=== PATIENT | female | born 1965 | race Caucasian/White ===

== ENCOUNTER 2017-08-28 14:48 | Inpatient (IN) ==
[2017-08-28] MEDS ORDERED: ALBUTEROL/IPRATROPIUM 2.5mg-0.5mg/3ml NEB IH ONE (15:38)
[2017-08-28] MEDS ORDERED: METHYLPREDNISOLONE SOD SUCC 125mg/2ml INJECTION IVP ONE (15:38)
[2017-08-28] MEDS ORDERED: CEFTRIAXONE (ER USE ONLY) 1 GM in NS 100 ML IV ONE (15:38)
[2017-08-28] MEDS ORDERED: SALINE FLUSH 10ml SYRINGE IVF PRN (15:38)
[2017-08-28] MEDS ORDERED: KETOROLAC 30 MG/ML INJECTION IVP ONE (15:53)
--- OUTSIDE RECORDS SUMMARY | 2017-08-28 16:01 | External Medical Summary ---
:1965 Author Organization [employer] Care Team Providers Name Role Phone Anjali Berman Provider Role Unavailable Allergies No Known Allergies Problems Problem Type Condition Code Onset Dates Condition Status Problem Pain in left knee M25.562 Active Problem COPD (chronic obstructive pulmonary J44.9 Active disease) Problem Hyperlipidemia, unspecified E78.5 Active hyperlipidemia type Problem Tobacco use Z72.0 Active Medications Medication Code System Code Instructions Start Date End Date Status Dosage Gabapentin [facility] 33282-321 300 MG Orally January 21, as directed 4-13 Take one tablet 2016 at bedtime day one, day two take one tablet BID, then take one tablet three times a day Results No Known Results Summary Purpose [employer]ClinicalWorks Submission
--- OUTSIDE RECORDS SUMMARY | 2017-08-28 16:01 | External Medical Summary ---
:1965 Author Organization [facility] Address [address] [place] [address] Care Team Providers Name Role Phone Anjali Berman Unavailable Unavailable PROBLEMS Type Condition ICD9-CM Code [id number] Onset Condition SNOMED Code Code Dates Status Problem COPD exacerbation J44.1 Active 055111578 Problem Hyperlipidemia, E78.5 Active 29395044 unspecified hyperlipidemia type Problem Tobacco use Z72.0 Active 141807149 Problem Pain in left knee M25.562 Active 86891040 Problem COPD (chronic J44.9 Active 89832219 obstructive pulmonary disease) ALLERGIES Unknown Allergies SOCIAL HISTORY No smoking Hx information available PLAN OF CARE VITAL SIGNS MEDICATIONS Unknown Medications RESULTS No Results PROCEDURES No Known procedures IMMUNIZATIONS No Known Immunizations
--- OUTSIDE RECORDS SUMMARY | 2017-08-28 16:01 | External Medical Summary ---
:1965 Author Organization [facility] Address [address] [place] [address] Care Team Providers Name Role Phone Anjali Berman Unavailable Unavailable PROBLEMS Type Condition ICD9-CM [id number] Onset Condition SNOMED Code Code Code Dates Status Problem Pain in left knee M25.562 Active 60746370 Problem COPD exacerbation J44.1 Active 065684521 Problem Hyperlipidemia, E78.5 Active 29477745 unspecified hyperlipidemia type Problem Tobacco use Z72.0 Active 552827206 Problem COPD (chronic J44.9 Active 78171032 obstructive pulmonary disease) Problem Complete tear of M75.121 Active 751039677 right rotator cuff Problem Other chronic pain G89.29 Active 70178522 Problem Daytime somnolence R40.0 Active 928883982418 Problem 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 81285522 recurrent major depressive disorder, without psychotic features Problem Obstructive sleep G47.33 Active 62327358 apnea Problem Elevated E34.9 Active 630729649 parathyroid hormone ALLERGIES Substance Reaction Event Type Date Status penicillin Unknown Drug Allergy Jan, Active SOCIAL HISTORY No smoking Hx information available PLAN OF CARE Activity Details Follow Up prn, 3 Months Reason: VITAL SIGNS Weight 208.7 lbs 2017-02-10 Height 66.5 in 2017-02-10 Heart Rate 77 /min 2017-02-10 Oximetry 96 % 2017-02-10 BMI 33.18 kg/m2 2017-02-10 Blood pressure systolic 128 mm Hg 2017-02-10 Blood pressure diastolic 80 mm Hg 2017-02-10 MEDICATIONS Medication Instructions Dosage Frequency Start End Duration Status Date Date Gabapentin 400 MG Orally Take one as directed Jan, days Active tablet three 2016 times a day Hydrocodone-Acetam Orally every 6 1 tablet as 14 days Active inophen 10-325 MG hrs as needed needed Amitiza 8 MCG Orally Twice a 1 capsule Nov, 30 day(s) Active day as needed with food 2015 Albuterol Sulfate Inhalation 3 ml as Sep, 30 days Active 1.25 MG/3ML every 8 hrs as needed 2016 needed ProAir HFA 108 (90 Inhalation 2 puffs as Jan, days Active Base) MCG/ACT every 4 hrs as needed 2016 needed Nebulizer - as directed Use as directed Sep, - TAKE Active with nebulizer 2015 vials DIRECTED Cholecalciferol Orally Once a 1 capsule 24h Mar, DAYS Active 1000 UNIT day 2015 Atorvastatin Orally Once a as directed Nov, days Active Calcium 80 mg day QHS 2016 Metaxalone 800 MG Orally every 1 tablet 30 day(s) Active 6hrs Cymbalta 60 MG Orally daily 1 capsule 24h Nov, 30 day(s) Active 2017 RESULTS No Results PROCEDURES Procedure Date Ordered Related Diagnosis Body Site OFFICE VISITEST PT February 10, 2017 IMMUNIZATIONS No Known Immunizations
--- OUTSIDE RECORDS SUMMARY | 2017-08-28 16:01 | External Medical Summary ---
:1965 Author Organization [facility] Address [address] [phone] Care Team Providers Name Role Phone Rakesh Norman Unavailable Unavailable PROBLEMS Type Condition ICD9-CM [id number] Onset Condition SNOMED Code Code Code Dates Status Problem Hyperparathyroidism E21.3 Active 35178749 Problem Vitamin D deficiency E55.9 Active 18282718 Assessment Hot flashes R23.2 Jan, Active 377481795 2017 Assessment Other fatigue R53.83 Jan, Active 01214282 2017 Assessment Hyperparathyroidism E21.3 Jan, Active 30383288 2017 Assessment Elevated TSH R94.6 Jan, Active 665484263 2017 ALLERGIES Substance Reaction Event Type Date Status Penicillin G Benzathine Unknown Drug Allergy Jan, Active SOCIAL HISTORY No smoking Hx information available PLAN OF CARE Activity Details Pending Test RENAL FUNCTION PANEL 13316 Pending Test THYROGLOBULIN ANTIBODIES 70602 Pending Test THYROID PEROXIDASE ANTIBODIES (TPO) 11778 Pending Test TSH W/REFLEX TO FT4 44161 Pending Test VITAMIN D, 25-OH, [place] [address] Pending Test VITAMIN D, 1,25 DIHYDROXY LC/MS/MS 88958 4 Months, prn,Reason: VITAL SIGNS Height 66 in 2017-02-03 Weight 207 lbs 2017-02-03 Heart Rate 78 /min 2017-02-03 Respiratory Rate 18 /min 2017-02-03 BMI 33.41 kg/m2 2017-02-03 Blood pressure systolic 122 mm Hg 2017-02-03 Blood pressure diastolic 84 mm Hg 2017-02-03 MEDICATIONS Medication Instructions Dosage Frequency Start End Duration Status Date Date Atorvastatin Orally Once a 1 tablet 24h Active Calcium 80 MG day Hydrocodone-Acet Orally every 6 1 tablet as 6h Active aminophen 10-325 hrs needed MG Cymbalta 60 MG Orally Once a 1 capsule 24h Active day Albuterol Inhalation Three 3 ml Active Sulfate (2.5 times a day as MG/3ML) 0.083% needed Amitiza 8 MCG Orally Twice a 1 capsule 12h Active day with food ProAir HFA 108 Inhalation every 2 puffs as 4h Active (90 Base) 4 hrs needed MCG/ACT Gabapentin 400 Orally Three 1 capsule 8h Active MG times a day Metaxalone 800 Orally Three 1 tablet 8h Active MG times a day RESULTS No Results PROCEDURES Procedure Date Ordered Related Diagnosis Body Site ASSAY OF PARATHORMONE February 03, 2017 RENAL FUNCTION PANEL February 03, 2017 Office Visit, New Pt., Level 3 February 03, 2017 ASSAY OF DIHYDROXYVITAMIN D February 03, 2017 MICROSOMAL ANTIBODY February 03, 2017 ASSAY THYROID STIM HORMONE February 03, 2017 ASSAY OF VITAMIN D February 03, 2017 THYROGLOBULIN ANTIBODY February 03, 2017 IMMUNIZATIONS No Known Immunizations
--- OUTSIDE RECORDS SUMMARY | 2017-08-28 16:01 | External Medical Summary ---
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 22368655 Problem Hyperparathyroidism E21.3 Active 17757777 Problem Vitamin D deficiency E55.9 Active 31435510 ALLERGIES Substance Reaction Event Type Date Status Penicillin G Benzathine Unknown Drug Allergy May, Active SOCIAL HISTORY No smoking Hx information available PLAN OF CARE Activity Details Follow Up 6 Months, prn Reason: Pending Test RENAL FUNCTION PANEL 95088 Pending Test T4, FREE 77522 Pending Test TSH 28658 Pending Test T3, FREE Pending Test VITAMIN D, 25-[address], [place] [address] Pending Test VITAMIN D, 1,25 DIHYDROXY LC/MS/MS 80092 Pending Test DEXA Hip and Spine Pending Test DEXA Forearm VITAL SIGNS Height 66 in 2017-06-09 Weight 207 lbs 2017-06-09 Heart Rate 78 /min 2017-06-09 Respiratory Rate 18 /min 2017-06-09 BMI 33.41 kg/m2 2017-06-09 Blood pressure systolic 122 mm Hg 2017-06-09 Blood pressure diastolic 80 mm Hg 2017-06-09 MEDICATIONS Medication Instructions Dosage Frequency Start End Date Duration Status Date Hydrocodone-Isaac Orally every 6 1 tablet as 6h Active taminophen hrs needed 10-325 MG Cymbalta 60 MG Orally Once a [...] Related Diagnosis Body Site ASSAY OF PARATHORMONE Jun 09, 2017 RENAL FUNCTION PANEL Jun 09, 2017 CENTRAL DEXA ORDERED Jun 09, 2017 ASSAY THYROID STIM HORMONE Jun 09, 2017 Office Visit, Est Pt., Level 4 Jun 09, 2017 ASSAY OF VITAMIN D Jun 09, 2017 ASSAY OF DIHYDROXYVITAMIN D Jun 09, 2017 FREE ASSAY (FT-3) Jun 09, 2017 ASSAY OF FREE THYROXINE Jun 09, 2017 IMMUNIZATIONS No Known Immunizations
--- OUTSIDE RECORDS SUMMARY | 2017-08-28 16:01 | External Medical Summary ---
:1965 Author Organization [employer] Care Team Providers Name Role Phone Anjali Berman Provider Role Unavailable Allergies No Known Allergies Problems Problem Type Condition Code Onset Dates Condition Status Problem Pain in left knee M25.562 Active Problem COPD (chronic obstructive pulmonary J44.9 Active disease) Problem Hyperlipidemia, unspecified E78.5 Active hyperlipidemia type Problem Tobacco use Z72.0 Active Medications No Known Medications Results No Known Results Summary Purpose eClinicalWorks Submission
--- OUTSIDE RECORDS SUMMARY | 2017-08-28 16:02 | External Medical Summary ---
:1965 Author Organization [facility] Address [address] [place] [address] Care Team Providers Name Role Phone Anjali Berman Unavailable Unavailable PROBLEMS Type Condition ICD9-CM [id number] Onset Condition SNOMED Code Code Code Dates Status Problem Pain in left knee M25.562 Active 63452776 Problem COPD exacerbation J44.1 Active 067139782 Problem Hyperlipidemia, E78.5 Active 83793167 unspecified hyperlipidemia type Problem Tobacco use Z72.0 Active 367226637 Problem COPD (chronic J44.9 Active 72298898 obstructive pulmonary disease) Problem Complete tear of M75.121 Active 896440586 right rotator cuff Problem Other chronic pain G89.29 Active 11877837 Problem Daytime somnolence R40.0 Active 352239659804 Problem 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
--- OUTSIDE RECORDS SUMMARY | 2017-08-28 16:02 | External Medical Summary ---
:1965 Author Organization [employer] Care Team Providers Name Role Phone Anjali Berman Provider Role Unavailable Allergies No Known Allergies Problems Problem Type Condition Code Onset Dates Condition Status Problem Pain in left knee M25.562 Active Problem COPD (chronic obstructive pulmonary J44.9 Active disease) Problem Hyperlipidemia, unspecified E78.5 Active hyperlipidemia type Problem Tobacco use Z72.0 Active Assessment Breast lump N63 Active Medications No Known Medications Procedures Procedure Coding System Code Date BREAST CPT-4 71356 February 07, 2016 Results No Known Results Summary Purpose [employer]ClinicalWorks Submission
--- OUTSIDE RECORDS SUMMARY | 2017-08-28 16:04 | External Medical Summary ---
:1965 Author Organization [facility] Address [address] [place] [address] Care Team Providers Name Role Phone Anjali Berman Unavailable Unavailable PROBLEMS Type Condition ICD9-CM [id number] Onset Condition SNOMED Code Code Code Dates Status Problem Pain in left knee M25.562 Active 32493546 Problem COPD exacerbation J44.1 Active 497162924 Problem Hyperlipidemia, E78.5 Active 51834550 unspecified hyperlipidemia type Problem Tobacco use Z72.0 Active 131817264 Problem COPD (chronic J44.9 Active 46888845 obstructive pulmonary disease) Problem Complete tear of M75.121 Active 272536089 right rotator cuff Problem Other chronic pain G89.29 Active 94896291 Problem Daytime somnolence R40.0 Active 853875310705 Problem 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 63080066 recurrent major depressive disorder, without psychotic features Problem Obstructive sleep G47.33 Active 78418487 apnea Problem Elevated E34.9 Active 303578794 parathyroid hormone ALLERGIES Substance Reaction Event Type Date Status penicillin Unknown Drug Allergy February, Active SOCIAL HISTORY No smoking Hx information available PLAN OF CARE Activity Details Follow Up prn, 3 Months Reason: VITAL SIGNS Weight 207.3 lbs 2017-02-24 Height 66.5 in 2017-02-24 Heart Rate 81 /min 2017-02-24 Oximetry 97 % 2017-02-24 BMI 32.95 kg/m2 2017-02-24 Blood pressure systolic 130 mm Hg 2017-02-24 Blood pressure diastolic 80 mm Hg 2017-02-24 MEDICATIONS Medication Instructions Dosage Frequency Start End Duration Status Date Date Atorvastatin Orally Once a as directed Nov, days Active Calcium 80 mg day QHS 2016 Nebulizer - as directed Use as directed Sep, - TAKE Active with nebulizer 2015 vials DIRECTED Cholecalciferol Orally Once a 1 capsule 24h Mar, Active 1000 UNIT day 2015 Amitiza 8 MCG Orally Twice a 1 capsule Nov, 30 day(s) Active day as needed with food 2015 ProAir HFA 108 (90 Inhalation 2 puffs as Jan, days Active Base) MCG/ACT every 4 hrs as needed 2015 needed Cymbalta 60 MG Orally daily 1 capsule 24h Nov, 30 day(s) Active 2017 Metaxalone 800 MG Orally every 1 tablet 30 day(s) Active 6hrs Albuterol Sulfate Inhalation 3 ml as Sep, Active 1.25 MG/3ML every 8 hrs as needed 2015 needed Hydrocodone-Acetam Orally every 6 1 tablet as 14 days Active inophen 10-325 MG hrs as needed needed Gabapentin 400 MG Orally Take one as directed Jan, days Active tablet three 2016 times a day RESULTS Name Result Date Reference Range CBC 2017-02-24 WBC 6.6 4.0-10.0 NE% 47.5 42.2-75.2 NE# 3.1 1.4-6.5 LY% 41.4 20.5-51.1 LY# 2.7 1.2-3.4 MO% 7.6 1.7-9.3 MO# 0.5 0.1-0.6 EO% 3.0 0.0-3.0 EO# 0.2 0.0-0.2 BA% 0.3 0.0-1.0 BA# 0.0 0.0-0.1 RBC 4.69 3.90-5.20 HGB 15.2 11.6-16.0 HCT 46.5 36.0-46.0 MCV 99.1 81.0-96.0 MCH 32.4 27.0-33.0 MCHC 32.7 32.0-35.0 RDW 13.6 11.5-15.5 PLT 232 130-400 MPV 10.9 8.9-12.7 COMPREHENSIVE CHEM PROFILE 2017-02-24 GLUCOSE 78 60-99 BUN 10 6-20 CREATININE 0.5 0.4-1.1 eGFR If Am 159 >60 eGFR If Non Am 131 >60 TOTAL BILI 0.31 0.00-1.00 SODIUM 142 133-145 POTASSIUM 4.6 3.3-5.1 CHLORIDE 102 96-108 CO2 29 23-31 CALCIUM 10.8 8.7-10.3 AST/SGOT 14 5-40 ALT/SGPT 18 5-40 ALK PHOS 85 34-114 TOTAL PROTEIN 6.9 5.9-8.4 ALBUMIN 4.0 3.2-5.2 GLOBULIN 2.9 2.0-4.4 PROCEDURES Procedure Date Ordered Related Diagnosis Body Site CBC February 24, 2017 COMP PROFILE February 24, 2017 OFFICE VISITEST PT February 24, 2017 EKG WITH INTERPRETAT February 24, 2017 IMMUNIZATIONS No Known Immunizations
--- OUTSIDE RECORDS SUMMARY | 2017-08-28 16:04 | External Medical Summary ---
:1965 Author Organization [employer]ClinicalWorks Care Team Providers Name Role Phone Anjali Berman Provider Role Unavailable Allergies, Adverse Reactions, Alerts Substance Reaction Event Type penicillin Info Not Available Drug Allergy Problems Problem Type Condition Code Onset Dates Condition Status Problem Pain in left knee M25.562 Active Problem COPD (chronic obstructive pulmonary J44.9 Active disease) Problem Hyperlipidemia, unspecified E78.5 Active hyperlipidemia type Assessment Low vitamin D level E55.9 Active Assessment Elevated parathyroid hormone E34.9 Active Problem Tobacco use Z72.0 Active Assessment Acute pansinusitis, recurrence not J01.40 Active specified Medications Medication Code Code Instructions Start End Status Dosage System Date Date ProAir HFA [facility] [id number] 108 (90 Base) January 2 puffs as MCG/ACT , needed Inhalation 2015 every 4 hrs as needed Azithromycin [facility] [address]-32 250 MG Orally Aug 06, 2 tablets Once a day 2015 on the first day, then 1 tablet daily for 4 days Cholecalciferol [facility] [address]-46 1000 UNIT March 1 capsule Orally Once a , day 2015 Atorvastatin [facility] [address]-81 80 mg Orally Dec 11, as Calcium Once a day QHS 2016 directed Metaxalone [facility] [address]-86 800 MG Orally 1 tablet every 6hrs Gabapentin [facility] [address]-39 400 MG Orally January as Take one , directed tablet three 2016 times a day Amitiza [facility] [address]-45 8 MCG Orally Dec 10, 1 capsule Twice a day as 2015 with food needed Hydrocodone-Acetam [facility] [address]-38 10-325 MG 1 tablet inophen Orally every 6 as needed hrs as needed Procedures Procedure Coding System Code Date PARATHYROID HORMONE CPT-4 94226 Aug 06, 2016 OFFICE VISITEST PT CPT-4 61611 Aug 06, 2016 Vitamin D 25OH CPT-4 64131 Aug 06, 2016 Vital Signs Date/Time: Aug 06, 2016 Blood Pressure Systolic 126 mm Hg Height 66.5 in Weight 203.4 lbs Oximetry 96 % Cardiac Monitoring Heart Rate 77 /min Temperature 98.7 F Blood Pressure Diastolic 84 mm Hg BMI 32.33 Index Results Name Result Date Reference Range Unit Abnormality Flag Vitamin D 25 - Hydroxy (PTH) Parathyroid Hormone ----PTH 122.3 [id number] 15.0-65.0 pg/ml H Summary Purpose eClinicalWorks Submission
--- OUTSIDE RECORDS SUMMARY | 2017-08-28 16:04 | External Medical Summary ---
:1965 Author Organization [facility] Address [address] [place] [address] Care Team Providers Name Role Phone Anjali Berman Unavailable Unavailable PROBLEMS Type Condition ICD9-CM [id number] Onset Condition SNOMED Code Code Code Dates Status Problem Pain in left knee M25.562 Active 35729494 Problem COPD exacerbation J44.1 Active 361261425 Problem Hyperlipidemia, E78.5 Active 51159038 unspecified hyperlipidemia type Problem Tobacco use Z72.0 Active 913565834 Problem COPD (chronic J44.9 Active 61754817 obstructive pulmonary disease) Problem Complete tear of M75.121 Active 286987192 right rotator cuff Problem Other chronic pain G89.29 Active 10914591 Problem Daytime somnolence R40.0 Active 222574101763 Problem 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
--- OUTSIDE RECORDS SUMMARY | 2017-08-28 16:04 | External Medical Summary ---
:1965 Author Organization [employer] Care Team Providers Name Role Phone Anjali Berman Provider Role Unavailable Allergies No Known Allergies Problems Problem Type Condition Code Onset Dates Condition Status Problem Pain in left knee M25.562 Active Problem COPD (chronic obstructive pulmonary J44.9 Active disease) Problem Hyperlipidemia, unspecified E78.5 Active hyperlipidemia type Problem Tobacco use Z72.0 Active Assessment COPD (chronic obstructive pulmonary J44.9 Active disease) Medications No Known Medications Procedures Procedure Coding System Code Date PULMONARY FUNCTION S CPT-4 80635 January 29, 2016 Results No Known Results Summary Purpose [employer] Submission
--- OUTSIDE RECORDS SUMMARY | 2017-08-28 16:04 | External Medical Summary ---
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 97830120 Problem Hyperparathyroidism E21.3 Active 40462552 Problem Vitamin D deficiency E55.9 Active 11649780 ALLERGIES Unknown Allergies SOCIAL HISTORY No smoking Hx information available PLAN OF CARE Activity Details Follow Up prn Reason: Pending Test CALCIUM, 24 HOUR URINE (W/ CREATININE) 53164, 31371 VITAL SIGNS MEDICATIONS Medication Instructions Dosage Frequency Start End Date Duration Status Date Amitiza 8 MCG Orally Twice a 1 capsule 12h Active day with food ProAir HFA 108 Inhalation every 2 puffs as 4h Active (90 Base) 4 hrs needed MCG/ACT Gabapentin 400 Orally Three 1 capsule 8h Active MG times a day Hydrocodone-Isaac Orally every 6 1 tablet as 6h Active taminophen hrs needed 10-325 MG Cymbalta 60 MG Orally Once a 1 capsule 24h Active day Albuterol Inhalation Three 3 ml Active Sulfate (2.5 times a day as MG/3ML) 0.083% needed Metaxalone 800 Orally Three 1 tablet 8h Active MG times a day RESULTS No Results PROCEDURES Procedure Date Ordered Related Diagnosis Body Site US EXAM OF HEAD AND NECK Jun 23, 2017 ASSAY OF URINE CREATININE Jun 23, 2017 ASSAY OF CALCIUM IN URINE Jun 23, 2017 IMMUNIZATIONS No Known Immunizations
--- OUTSIDE RECORDS SUMMARY | 2017-08-28 16:04 | External Medical Summary ---
[...] Medications Medication Code System Code Instructions Start End Date Status Dosage Date Hydrocodone-Isaac [facility] [address]331 10-325 MG Orally 1 tablet taminophen 6-30 every 6 hrs as as needed needed Results No Known Results Summary Purpose [employer] Submission
--- OUTSIDE RECORDS SUMMARY | 2017-08-28 16:04 | External Medical Summary ---
:1965 Author Organization [employer] Care Team Providers Name Role Phone Anjali Berman Provider Role Unavailable Allergies No Known Allergies Problems Problem Type Condition Code Onset Dates Condition Status Problem Pain in left knee M25.562 Active Problem COPD (chronic obstructive pulmonary J44.9 Active disease) Problem Hyperlipidemia, unspecified E78.5 Active hyperlipidemia type Problem Tobacco use Z72.0 Active Assessment Abnormal finding on mammography R92.8 Active Medications No Known Medications Procedures Procedure Coding System Code Date COMPUTER AIDED DX CPT-4 96960 February 11, 2016 DX MAMMO, UNILATERAL CPT-4 29457 February 11, 2016 Results Name Result Date Reference Range Unit Abnormality Flag Mammogram, Dx Unilateral Summary Purpose [employer]ClinicalWorks Submission
--- OUTSIDE RECORDS SUMMARY | 2017-08-28 16:04 | External Medical Summary ---
:1965 Author Organization [facility] Address [address] [place] [address] Care Team Providers Name Role Phone Anjali Berman Unavailable Unavailable PROBLEMS Type Condition ICD9-CM [id number] Onset Condition SNOMED Code Code Code Dates Status Problem Pain in left knee M25.562 Active 20574159 Problem COPD exacerbation J44.1 Active 861444214 Problem Hyperlipidemia, E78.5 Active 38732074 unspecified hyperlipidemia type Problem Tobacco use Z72.0 Active 821583733 Problem COPD (chronic J44.9 Active 60743673 obstructive pulmonary disease) Problem Complete tear of M75.121 Active 656855440 right rotator cuff Problem Other chronic pain G89.29 Active 14535843 Problem Daytime somnolence R40.0 Active 901862911976 Problem 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
--- OUTSIDE RECORDS SUMMARY | 2017-08-28 16:04 | External Medical Summary ---
:1965 Author Organization [employer] Care Team Providers Name Role Phone Anjali Berman Provider Role Unavailable Allergies, Adverse Reactions, Alerts Substance Reaction Event Type penicillin Info Not Available Drug Allergy Problems Problem Type Condition Code Onset Dates Condition Status Assessment Tobacco use Z72.0 Active Assessment Hyperlipidemia, unspecified E78.5 Active hyperlipidemia type Problem Pain in left knee M25.562 Active Problem COPD (chronic obstructive pulmonary J44.9 Active disease) Problem Hyperlipidemia, unspecified E78.5 Active hyperlipidemia type Assessment Breast nodule N63 Active Assessment Pain in left knee M25.562 Active Problem Tobacco use Z72.0 Active Assessment Well woman exam Z01.419 Active Medications Medication Code Code Instructions Start End Date Status Dosage System Date Hydrocodone-Acet [facility] 89565-95 10-325 MG Orally 1 tablet as aminophen 16-30 every 6 [place] [address]-66 300 MG Orally January 21, as directed 04-13 Take one tablet 2015 at bedtime day one, day two take one tablet BID, for week three times a day Amitiza [facility] 21122-41 8 MCG Orally b , 1 capsule 22-30 Twice a day 2015 [place] [address]-08 80 mg Orally b 24, as directed Calcium 41-45 Once a day QHS 2016 ProAir HFA [facility] 47353-26 108 (90 Base) January 21, 2 puffs as 51-85 MCG/ACT 2016 needed Inhalation every 4 hrs as needed Brisdelle [facility] 76159-14 7.5 MG Orally b 24, 1 capsule 75-03 Once a day 2016 at bedtime Procedures Procedure Coding System Code Date PREV MED SEREST 40 CPT-4 04025 January 22, 2016 Vital Signs Date/Time: January 22, 2016 Blood Pressure Systolic 128 mm Hg Height 66.5 in Weight 196.9 lbs BMI 31.30 Index Oximetry 98 % Cardiac Monitoring Heart Rate 95 /min Blood Pressure Diastolic 80 mm Hg Results No Known Results Summary Purpose [employer]ClinicalWorks Submission
--- OUTSIDE RECORDS SUMMARY | 2017-08-28 16:04 | External Medical Summary ---
:1965 Author Organization [employer] Care Team Providers Name Role Phone Anjali Berman Provider Role Unavailable Allergies No Known Allergies Problems Problem Type Condition Code Onset Dates Condition Status Problem Hyperlipidemia, unspecified E78.5 Active hyperlipidemia type Problem Pain in left knee M25.562 Active Problem COPD exacerbation J44.1 Active Problem COPD (chronic obstructive pulmonary J44.9 Active disease) Problem Tobacco use Z72.0 Active Medications No Known Medications Results No Known Results Summary Purpose [employer]Works Submission
--- OUTSIDE RECORDS SUMMARY | 2017-08-28 16:04 | External Medical Summary ---
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 07706858 recurrent major depressive disorder, without psychotic features Problem Pain in left knee M25.562 Active 94251749 Problem COPD (chronic J44.9 Active 75262733 obstructive pulmonary disease) Problem COPD exacerbation J44.1 Active 416288557 Problem Hyperlipidemia, E78.5 Active 98370068 unspecified hyperlipidemia type ALLERGIES Substance Reaction Event Type Date Status penicillin Unknown Drug Allergy Nov, Active SOCIAL HISTORY No smoking Hx information available PLAN OF CARE VITAL SIGNS Weight 210.4 lbs 2016-12-14 Height 66.5 in 2016-12-14 Temperature 97.9 degrees Fahrenheit 2016-12-14 Heart Rate 87 /min 2016-12-14 Oximetry 95 % 2016-12-14 BMI 33.45 kg/m2 2016-12-14 Blood pressure systolic 126 mm Hg 2016-12-14 Blood pressure diastolic 84 mm Hg 2016-12-14 MEDICATIONS Medication Instructions Dosage Frequency Start End Duration Status Date Date Medrol (Jaxson) 4 mg Orally daily as directed 24h Nov, - TAKE Active 2016 DIRECTED Azithromycin 250 Orally Once a 2 tablets 24h Nov, 5 day(s) Active MG day on the 2016 first day, then 1 tablet daily for 4 days Albuterol Sulfate Inhalation 3 ml as Sep, 30 days Active 1.25 MG/3ML every 8 hrs as needed 2015 needed Metaxalone 800 MG Orally every 1 tablet 30 day(s) Active 6hrs Cholecalciferol Orally Once a 1 capsule 24h Mar, DAYS Active 1000 UNIT day 2015 Hydrocodone-Acetam Orally every 6 1 tablet as 14 days Active inophen 10-325 MG hrs as needed needed Cymbalta 30 MG Orally daily 1 capsule 24h Nov, 30 day(s) Active 2017 Nebulizer - as directed Use as directed Sep, - TAKE Active with nebulizer 2015 vials DIRECTED Amitiza 8 MCG Orally Twice a 1 capsule Nov, day(s) Active day as needed with food 2015 Gabapentin 400 MG Orally Take one as directed Jan, days Active tablet three 2016 times a day ProAir HFA 108 (90 Inhalation 2 puffs as Jan, days Active Base) MCG/ACT every 4 hrs as needed 2015 needed Atorvastatin Orally Once a as directed Nov, days Active Calcium 80 mg day QHS 2015 RESULTS No Results PROCEDURES Procedure Date Ordered Related Diagnosis Body Site OFFICE VISITEST PT Dec 14, 2016 IMMUNIZATIONS No Known Immunizations
--- OUTSIDE RECORDS SUMMARY | 2017-08-28 16:04 | External Medical Summary ---
:1965 Author Organization [employer] Care Team Providers Name Role Phone Anjali Berman Provider Role Unavailable Allergies No Known Allergies Problems Problem Type Condition Code Onset Dates Condition Status Problem Pain in left knee M25.562 Active Problem COPD (chronic obstructive pulmonary J44.9 Active disease) Problem Hyperlipidemia, unspecified E78.5 Active hyperlipidemia type Problem Tobacco use Z72.0 Active Assessment Encounter for other preprocedural Z01.818 Active examination Medications No Known Medications Procedures Procedure Coding System Code Date CHEST XRAY 2 VIEW CPT-4 37868 January 29, 2016 Results No Known Results Summary Purpose [employer] Submission
--- OUTSIDE RECORDS SUMMARY | 2017-08-28 16:04 | External Medical Summary ---
:1965 Author Organization [facility] Address [address] [place] [address] Care Team Providers Name Role Phone Anjali Berman Unavailable Unavailable PROBLEMS Type Condition ICD9-CM [id number] Onset Condition SNOMED Code Code Code Dates Status Problem Pain in left knee M25.562 Active 55901905 Problem COPD exacerbation J44.1 Active 257148482 Problem Hyperlipidemia, E78.5 Active 52195954 unspecified hyperlipidemia type Problem Tobacco use Z72.0 Active 466372304 Problem COPD (chronic J44.9 Active 39283808 obstructive pulmonary disease) Problem Complete tear of M75.121 Active 250041718 right rotator cuff Problem Other chronic pain G89.29 Active 24017047 Problem Daytime somnolence R40.0 Active 772274217954 Problem 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 82692861 recurrent major depressive disorder, without psychotic features Problem Obstructive sleep G47.33 Active 36148562 apnea Problem Elevated E34.9 Active 177318935 parathyroid hormone ALLERGIES Unknown Allergies SOCIAL HISTORY No smoking Hx information available PLAN OF CARE VITAL SIGNS MEDICATIONS Unknown Medications RESULTS No Results PROCEDURES No Known procedures IMMUNIZATIONS No Known Immunizations
--- OUTSIDE RECORDS SUMMARY | 2017-08-28 16:06 | External Medical Summary ---
[...] Tobacco use Z72.0 Active Assessment Breast lump or mass N63 Active Medications No Known Medications Procedures Procedure Coding System Code Date COMPUTER AIDED DX CPT-4 71634 February 07, 2016 Dx mammo bilateral CPT-4 57172 February 07, 2016 Results No Known Results Summary Purpose [employer]ClinicalWorks Submission
--- OUTSIDE RECORDS SUMMARY | 2017-08-28 16:06 | External Medical Summary ---
:1965 Author Organization [employer]Works Care Team Providers Name Role Phone Anjali Berman Provider Role Unavailable Allergies No Known Allergies Problems Problem Type Condition Code Onset Dates Condition Status Assessment Elevated MCV R71.8 Active Assessment Subclinical hypothyroidism E03.9 Active Assessment Hypercalcemia E83.52 Active Problem Pain in left knee M25.562 Active Problem COPD (chronic obstructive pulmonary J44.9 Active disease) Problem Hyperlipidemia, unspecified E78.5 Active hyperlipidemia type Assessment Breast nodule N63 Active Assessment Hyperlipidemia E78.5 Active Problem Tobacco use Z72.0 Active Assessment Pre-procedural laboratory Z01.812 Active examination Medications No Known Medications Procedures Procedure Coding System Code Date COMP PROFILE CPT-4 96304 January 29, 2016 PROTIME CPT-4 58658 January 29, 2016 CBC CPT-4 18564 January 29, 2016 URINE CULTURE CPT-4 94324 January 29, 2016 HgB A1C CPT-4 34488 January 29, 2016 URINALYSIS CPT-4 10399 January 29, 2016 T4 CPT-4 57786 January 29, 2016 TSH CPT-4 04626 January 29, 2016 Results Name Result Date Reference Range Unit Abnormality Flag COMPREHENSIVE CHEM PROFILE ----CALCIUM 10.4 30665549 8.7-10.3 MG/DL H ----CO2 30 86850143 23-31 MMOL/L ----CREATININE 0.5 69087132 0.4-1.1 MG/DL ----eGFR If Am 159 60762833 >60 ml/min/1.73m^ 2 ----GLOBULIN 2.7 55599807 2.0-4.4 G/DL ----eGFR If Non 132 31924806 >60 ml/min/1.73m^ Am 2 ----ALBUMIN 4.1 03318241 3.2-5.2 G/DL ----TOTAL BILI 0.33 42355162 0.00-1.00 MG/DL ----TOTAL PROTEIN 6.8 36096996 5.9-8.4 G/DL ----SODIUM 143 61417096 133-145 MMOL/L ----ALK PHOS 94 59453873 34-114 U/L ----POTASSIUM 3.9 24454593 3.3-5.1 MMOL/L ----GLUCOSE 120 72208065 60-99 MG/DL H ----CHLORIDE 103 23970502 96-108 MMOL/L ----ALT/SGPT 37 16587611 5-40 U/L ----BUN 7 46272340 6-20 MG/DL ----AST/SGOT 26 09074862 5-40 U/L HbA1C ----%A1C 5.8 83742694 4.0-6.0 % CBC ----MCV 100.8 78133068 81.0-96.0 FL H ----HCT 47.7 33423444 36.0-46.0 % H ----MCHC 32.3 80054925 32.0-35.0 G/DL ----MCH 32.6 21281662 27.0-33.0 PG ----EO# 0.3 51423877 0.0-0.2 X10^3/UL H ----PLT 224 94988759 130-400 X10^3 ----EO% 4.0 47459558 0.0-3.0 % H ----RDW 13.2 90352219 11.5-15.5 % ----MO# 0.6 78895956 0.1-0.6 X10^3/UL H ----MO% 7.4 26534291 1.7-9.3 % ----LY# 3.0 03814356 1.2-3.4 X10^3/UL ----BA# 0.0 54551678 0.0-0.1 X10^3/UL ----BA% 0.3 02973526 0.0-1.0 % ----HGB 15.4 91976509 11.6-16.0 G/DL ----RBC 4.73 79200069 3.90-5.20 X10^6 ----MPV 11.6 03024034 8.9-12.7 FL ----WBC 7.7 59041631 4.0-10.0 X10^3/UL ----NE% 49.4 83664499 42.2-75.2 % ----NE# 3.8 57861032 1.4-6.5 X10^3/UL ----LY% 38.9 29735150 20.5-51.1 % PROTIME ----INR 0.8 44236552 2.0-3.5 L ----PT 10.0 24374853 11.6-13.2 SEC L Urinalysis ----PROTEIN NEG 25445206 NEGATIVE ----pH 5 21716412 5-8 ----NITRITES NEG 30377578 NEGATIVE ----LEUKOCYTES TR 90196736 NEGATIVE ----UROBILINOGEN NORM 38180434 0 - 1.0 MG/DL ----KETONES NEG 57599237 NEGATIVE ----GLUCOSE NORM 75233582 NEG MG/DL ----SPEC GRAVITY 1.030 59766236 1.016-1.022 ----CLARITY CLEAR 01429333 CLEAR ----COLOR D.YEL 80305690 YELLOW-STRAW ----BILIRUBIN NEG 60500280 NEGATIVE ----BLOOD NEG 46008898 NEGATIVE Urine Culture #[id number] T4 ----T4 6.5 03607121 4.6-12.0 ?g/dL TSH ----TSH 4.57 10982292 0.40-5.00 ?IU/ML Summary Purpose eClinicalWorks Submission
--- OUTSIDE RECORDS SUMMARY | 2017-08-28 16:06 | External Medical Summary ---
[...] System Code Date COMPUTER AIDED DX CPT-4 82203 Aug 06, 2016 Dx mammo bilateral CPT-4 85722 Aug 06, 2016 Results Name Result Date Reference Range Unit Abnormality Flag Mammogram, Dx Bilateral Summary Purpose [employer]ClinicalWorks Submission
--- OUTSIDE RECORDS SUMMARY | 2017-08-28 16:06 | External Medical Summary ---
:[address] [facility] Address [address] [place] [address] Care Team Providers Name Role Phone Anjali Berman Unavailable Unavailable PROBLEMS Type Condition ICD9-CM [id number] Onset Condition SNOMED Code Code Code Dates Status Problem Pain in left knee M25.562 Active 07372517 Problem COPD exacerbation J44.1 Active 049864507 Problem Hyperlipidemia, E78.5 Active 04008428 unspecified hyperlipidemia type Problem Tobacco use Z72.0 Active 230636326 Problem COPD (chronic J44.9 Active 60261176 obstructive pulmonary disease) Problem Complete tear of M75.121 Active 024612641 right rotator cuff Problem Other chronic pain G89.29 Active 32850959 Problem Daytime somnolence R40.0 Active 792563478773 Problem 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
--- OUTSIDE RECORDS SUMMARY | 2017-08-28 16:06 | External Medical Summary ---
:1965 Author Organization [facility] Address [address] [place] [address] Care Team Providers Name Role Phone Anjali Berman Unavailable Unavailable PROBLEMS Type Condition ICD9-CM [id number] Onset Condition SNOMED Code Code Code Dates Status Problem Pain in left knee M25.562 Active 16849647 Problem COPD exacerbation J44.1 Active 095156244 Problem Hyperlipidemia, E78.5 Active 98322789 unspecified hyperlipidemia type Problem Tobacco use Z72.0 Active 288920922 Problem COPD (chronic J44.9 Active 21470321 obstructive pulmonary disease) Problem Complete tear of M75.121 Active 399258872 right rotator cuff Problem Other chronic pain G89.29 Active 57626324 Problem Daytime somnolence R40.0 Active 553784816470 Problem 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 51673054 recurrent major depressive disorder, without psychotic features Problem Obstructive sleep G47.33 Active 25498840 apnea Problem Elevated E34.9 Active 300993181 parathyroid hormone ALLERGIES Substance Reaction Event Type [...]
--- OUTSIDE RECORDS SUMMARY | 2017-08-28 16:06 | External Medical Summary ---
:1965 Author Organization [employer]Works Care Team Providers Name Role Phone Anjali Berman Provider Role Unavailable Allergies No Known Allergies Problems Problem Type Condition Code Onset Dates Condition Status Problem Pain in left knee M25.562 Active Problem COPD (chronic obstructive pulmonary J44.9 Active disease) Problem Hyperlipidemia, unspecified E78.5 Active hyperlipidemia type Assessment Hypercalcemia E83.52 Active Assessment Back pain M54.9 Active Problem Tobacco use Z72.0 Active Assessment Elevated MCV R71.8 Active Medications No Known Medications Procedures Procedure Coding System Code Date IMMUNOFIXATION ELECT CPT-4 00886 April 24, 2016 PROTEIN ELECTROPHOR CPT-4 85499 April 24, 2016 T PROTEIN CPT-4 37853 April 24, 2016 Immunoglobulins (IgA,D,G,or M) CPT-4 52870 April 24, 2016 Results Name Result Date Reference Range Unit Abnormality Flag RENATO/PE Immunofixation/Serum Protein Electrophoresis, Myeloma Proteins #[id number] Protein Electrophoresis, Random Urine #[id number] Summary Purpose eClinicalWorks Submission
--- OUTSIDE RECORDS SUMMARY | 2017-08-28 16:06 | External Medical Summary ---
:1965 Author Organization [facility] Address [address] [place] [address] Care Team Providers Name Role Phone Anjali Berman Unavailable Unavailable PROBLEMS Type Condition ICD9-CM NZR27-KM Onset Condition SNOMED Code Code Code Dates Status Assessment Cough R05 Sep, Active 83420255 2016 Assessment Wheezing R06.2 Sep, Active 67853049 2016 Problem COPD exacerbation J44.1 Active 400379738 Problem Hyperlipidemia, E78.5 Active 90317924 unspecified hyperlipidemia type Problem Tobacco use Z72.0 Active 750784192 Assessment COPD exacerbation J44.1 Sep, Active 440666202 2016 Problem Pain in left knee M25.562 Active 77252823 Problem COPD (chronic J44.9 Active 81791315 obstructive pulmonary disease) ALLERGIES Substance Reaction Event Type Date Status penicillin Unknown Drug Allergy Sep, Active SOCIAL HISTORY No smoking Hx information available PLAN OF CARE VITAL SIGNS Weight 206.3 lbs 2016-09-21 Height 66.5 in 2016-09-21 Temperature 98.3 degrees Fahrenheit 2016-09-21 Heart Rate 100 /min 2016-09-21 Oximetry 95 % 2016-09-21 BMI 32.80 kg/m2 2016-09-21 Blood pressure systolic 130 mm Hg 2016-09-21 Blood pressure diastolic 84 mm Hg 2016-09-21 MEDICATIONS Medication Instructions Dosage Frequency Start End Duration Status Date Date Metaxalone 800 MG Orally every 1 tablet 30 day(s) Active 6hrs Hydrocodone-Acetam Orally every 6 1 tablet as 14 days Active inophen 10-325 MG hrs as needed needed Albuterol Sulfate Inhalation 3 ml as Sep, days Active 1.25 MG/3ML every 8 hrs as needed 2016 needed ProAir HFA 108 (90 Inhalation 2 puffs as Jan, 30 days Active Base) MCG/ACT every 4 hrs as needed 2015 needed Amitiza 8 MCG Orally Twice a 1 capsule Nov, 30 day(s) Active day as needed with food 2015 Gabapentin 400 MG Orally Take one as directed Jan, days Active tablet three 2016 times a day Azithromycin 250 Orally Once a 2 tablets 24h Sep, day(s) Active MG day on the 2015 first day, then 1 tablet daily for 4 days Medrol (Jaxson) 4 MG Orally daily as directed 24h Sep, - TAKE Active 2015 DIRECTED Nebulizer - as directed Use as directed Sep, - TAKE Active with nebulizer 2015 vials DIRECTED Cholecalciferol Orally Once a 1 capsule 24h Mar, DAYS Active 1000 UNIT day 2015 Atorvastatin Orally Once a as directed Nov, days Active Calcium 80 mg day QHS 2015 RESULTS Name Result Date Reference Range X ray : Chest 2 views 2016-09-21 PROCEDURES Procedure Date Ordered Related Diagnosis Body Site CHEST XRAY 2 VIEW Sep 21, 2016 BREATHING TREATMENT/BRONCHODILATION Sep 21, 2016 OFFICE VISITEST PT Sep 21, 2016 IMMUNIZATIONS No Known Immunizations
--- OUTSIDE RECORDS SUMMARY | 2017-08-28 16:08 | External Medical Summary ---
:1965 Author Organization [facility] Address [address] [place] [address] Care Team Providers Name Role Phone Anjali Berman Unavailable Unavailable PROBLEMS Type Condition ICD9-CM [id number] Onset Condition SNOMED Code Code Code Dates Status Problem COPD (chronic J44.9 Active 82062112 obstructive pulmonary disease) Problem Hyperlipidemia, E78.5 Active 01063221 unspecified hyperlipidemia type Problem Pain in left knee M25.562 Active 20527034 Problem Tobacco use Z72.0 Active 389007546 Problem Other chronic pain G89.29 Active 92393067 Problem Obstructive sleep G47.33 Active 14893544 apnea Problem 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 09161232 recurrent major depressive disorder, without psychotic features Problem COPD exacerbation J44.1 Active 871011516 Problem Elevated E34.9 Active 325866932 parathyroid hormone Problem Daytime somnolence R40.0 Active 472817923680 ALLERGIES Substance Reaction Event Type Date Status penicillin Unknown Drug Allergy Dec, Active SOCIAL HISTORY No smoking Hx information available PLAN OF CARE Activity Details Follow Up prn, 4 Weeks Reason: VITAL SIGNS Weight 213.3 lbs 2017-01-13 Height 66.5 in 2017-01-13 Heart Rate 84 /min 2017-01-13 Oximetry 95 % 2017-01-13 BMI 33.91 kg/m2 2017-01-13 Blood pressure systolic 130 mm Hg 2017-01-13 Blood pressure diastolic 88 mm Hg 2017-01-13 MEDICATIONS Medication Instructions Dosage Frequency Start End Duration Status Date Date Atorvastatin Orally Once a as directed Nov, days Active Calcium 80 mg day QHS 2015 Cholecalciferol Orally Once a 1 capsule 24h Mar, Active 1000 UNIT day 2015 Cymbalta 60 MG Orally daily 1 capsule 24h Nov, 30 day(s) Active 2016 Gabapentin 400 MG Orally Take one as directed Jan, days Active tablet three 2016 times a day Nebulizer - as directed Use as directed Sep, - TAKE Active with nebulizer 2016 vials DIRECTED ProAir HFA 108 (90 Inhalation 2 puffs [...] inophen 10-325 MG hrs as needed needed Metaxalone 800 MG Orally every 1 tablet 30 day(s) Active 6hrs RESULTS No Results PROCEDURES Procedure Date Ordered Related Diagnosis Body Site SHOULDER 2 VIEW January 13, 2017 OFFICE VISITEST PT January 13, 2017 IMMUNIZATIONS No Known Immunizations
--- OUTSIDE RECORDS SUMMARY | 2017-08-28 16:08 | External Medical Summary ---
:1965 Author Organization [facility] Address [address] [place] [address] Care Team Providers Name Role Phone Anjali Berman Unavailable Unavailable PROBLEMS Type Condition ICD9-CM [id number] Onset Condition SNOMED Code Code Code Dates Status Problem Pain in left knee M25.562 Active 15251274 Problem COPD exacerbation J44.1 Active 547635043 Problem Hyperlipidemia, E78.5 Active 14785739 unspecified hyperlipidemia type Problem Tobacco use Z72.0 Active 913826411 Problem COPD (chronic J44.9 Active 49758630 obstructive pulmonary disease) Problem Complete tear of M75.121 Active 761738908 right rotator cuff Problem Other chronic pain G89.29 Active 68327957 Problem Daytime somnolence R40.0 Active 789838526240 Problem 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 26784589 recurrent major depressive disorder, without psychotic features Problem Obstructive sleep G47.33 Active 54990714 apnea Problem Elevated E34.9 Active 937543424 parathyroid hormone ALLERGIES Unknown Allergies SOCIAL HISTORY No smoking Hx information available PLAN OF CARE VITAL SIGNS MEDICATIONS Unknown Medications RESULTS No Results PROCEDURES No Known procedures IMMUNIZATIONS No Known Immunizations
--- OUTSIDE RECORDS SUMMARY | 2017-08-28 16:08 | External Medical Summary | Continuity of Care Document ---
:1965 Author Organization [facility] Allergies Active Description Code Type Severity Reaction Onset Reported/ Identified Relationship Clinical to Patient Status Yes PENICILLIN [id number] Skin 02/11/2016 Rashes/Hi ves Medications Medication Packaging Start Date Stop Date Route Dosage Sig EA 02/12/2016 PO * DONT 6 PRN RECONCILE--CHANGE PENDING VL 02/17/2016 ID ROPIVACAINE 6 150MG/30ML INJ ONCE VL 02/17/2016 IM BACITRACIN 50,000 6 UNITS VIAL ONCE BAG 02/17/2016 IV LACTATED RINGERS 6 1000 ML IV SOLN ONCE EA 02/17/2016 IRR SODIUM CHLORIDE 0.9% 6 1000ML IRRIG SOLN ONCE VL 02/17/2016 PB VANCOMYCIN 1GM INJ 6 ONCE BAG 02/17/2016 LVP SODIUM CHLORIDE 0.9% 6 1000ML IV SOLN ONCE BAG 02/17/2016 IV LACTATED RINGERS 6 1000 ML IV SOLN PRE-OP AMP 02/17/2016 IV fentaNYL 100 MCG/2ML 6 INJ PRE-OP VL 02/17/2016 IV ceFAZolin 1GM VIAL 6 PRE-OP VL 02/17/2016 IV AMINOCAPROIC ACID 6 INJ 5G/20ML PRE-OP VL 02/17/2016 IV MIDAZOLAM 2MG/2ML 6 INJ PRE-OP VL 02/17/2016 ID BUPIVACAINE-MPF 0.5% 6 W/ EPI INJ [30ML] ONCE SYR 02/17/2016 IVP SODIUM CHLORIDE 0.9% 7 10ML FLUSH SYRINGE BID&090 0,2100 PAT 02/17/2016 TD NICOTINE 21MG/24HR 7 PATCH QD&0900 CAP 02/17/2016 PO DOCUSATE SODIUM 7 100MG CAPSULE BID&090 0,2100 SYR 02/17/2016 IVP LIDOCAINE 2% 6 SYRINGE [100MG/5ML] ONCE VL 02/17/2016 IVP VECURONIUM 10MG INJ 6 ONCE VL 02/17/2016 IVP PROPOFOL 200MG/20ML 6 INJ ONCE VL 02/17/2016 IVP ONDANSETRON 4MG/2ML 6 INJ ONCE DOS 02/17/2016 IVP SUCCINYLCHOLINE 6 100MG/5ML SYRINGE ONCE [COMPOUND] AMP 02/17/2016 IV fentaNYL 250 MCG/5ML 6 INJ ONCE VL 02/17/2016 TOP LTA 4% KIT 6 [LIDOCAINE 4% ONCE TOPICAL SOLN: 4ML] DOS 02/17/2016 IVP PHENYLEPHRINE 6 1MG/10ML SYRINGE ONCE [COMPOUND] EA 02/17/2016 PO * Ready to Reconcile 6 ASDIR SYR 02/17/2016 IVP SODIUM CHLORIDE 0.9% 7 PRN 10ML FLUSH SYRINGE SYR 02/17/2016 IVP SODIUM CHLORIDE 0.9% 7 PRN 5ML FLUSH SYRINGE ML 02/17/2016 IVP MORPHINE 2 MG/1ML 7 SYRINGE [id number] ML 02/17/2016 IVP MORPHINE 4MG/1ML 7 SYRINGE [id number] BAG 02/17/2016 LVP SODIUM CHLORIDE 0.9% 6 1000ML IV SOLN 100ML/HR VL 02/17/2016 IM MEPERIDINE 25MG/1ML 7 INJECTION Q3HPRN EA 02/17/2016 PO MAGNESIUM HYDROXIDE 7 2400MG/30ML SUSP QDPRNC SUP 02/17/2016 WA* BISACODYL 10MG 7 SUPPOS. QDPRN EA 02/17/2016 PO MAGNESIUM HYDROX/AL 7 HYDROX/SIMETH 30ML BIDPRN SUSP VL 02/17/2016 IVP ONDANSETRON 4MG/2ML 7 INJ [id number] VL 02/17/2016 IVP METOCLOPRAMIDE 7 10MG/2ML INJ [id number] TAB 02/17/2016 PO TAPENTADOL 50MG 6 TABLET Q4-6HPRNP EMILY 02/17/2016 BC CEPACOL 7 (BENZOCAINE/MENTHOL) Q4HPRN LOZENGE TAB 02/17/2016 PO OXYcodone/ACETAMINOP 7 HEN 5-325 MG TABLET [id number] CAP 02/17/2016 PO TEMAZEPAM 15MG 7 CAPSULE HSPRNI& 2200 CAP 02/17/2016 PO diphenhydrAMINE 25MG 7 CAPSULE Q6HPRN TAB 02/17/2016 PO CYCLOBENZAPRINE 10 7 MG TABLET [id number] TAB 02/17/2016 PO CALCIUM CARBONATE 7 500MG TABLET BIDPRN DOS 02/17/2016 IVP KETOROLAC 30 MG/1ML 7 INJ [id number] TAB 02/17/2016 PO *ATORVASTATIN 80MG 7 TABLET HS&2200 CAP 02/17/2016 PO *GABAPENTIN 300MG 7 CAPSULE BID&090 0,2100 MDI 02/17/2016 AER *ALBUTEROL / 7 IPRATROPIUM INHALER ASDIR [14.7GM] MDI 02/17/2016 AER *ALBUTEROL INHALER 7 [8.5GM] TID&090 0,1500,2200 ML 02/17/2016 IV hydroMORPHONE 6 2MG/1ML INJ POST-OP VL 02/17/2016 PB ACETAMINOPHEN IV 6 1GM/100ML Q6H&000 0,0600,1200 ,1800 ML 02/17/2016 IV hydroMORPHONE 6 2MG/1ML INJ POST-OP PAT 02/17/2016 TD NICOTINE 21MG/24HR 6 PATCH ONCE VL 02/17/2016 IVP ceFAZolin 1GM VIAL 6 Q8H&000 0,0800,1600 TAB 02/18/2016 PO OXYcodone/ACETAMINOP 6 HEN 5-325 MG TABLET [id number] TAB 02/18/2016 PO HYDROcodone/ACETAMIN 7 OPHEN 5-325 MG [id number] TABLET TAB 02/18/2016 PO APIXABAN 2.5MG 7 TABLET BID&090 0,2100 TAB 02/19/2016 PO OXYcodone/ACETAMINOP 7 HEN 10-325 MG TABLET [id number] TAB 02/19/2016 PO OXYcodone/ACETAMINOP 6 HEN 10-325 MG TABLET ONCE CAP 03/13/2016 PO *GABAPENTIN 300MG 6 CAPSULE BID&090 0,2100 MDI 03/13/2016 AER *ALBUTEROL INHALER 6 [8.5GM] TID&090 0,1500,2200 TAB 03/13/2016 PO *HYDROcodone/ACETAMI 7 NOPHEN 10-325 MG Q6HPRN TABLET TAB 03/13/2016 PO *ATORVASTATIN 40MG 6 TABLET HS&2200 TAB 03/19/2016 PO *ATORVASTATIN 80MG 6 TABLET HS&2200 MDI 03/19/2016 AER *ALBUTEROL / 6 IPRATROPIUM INHALER ASDIR [14.7GM] Problems Date Dx Attending Type Code Diagnosis Diagnosed By Coded 02/19/2016 JAYNE WHITTAKER DF E03.9 Hypothyroidism, unspecified 02/19/2016 JAYNE WHITTAKER DF E78.0 Pure hypercholesterolemia 02/19/2016 JAYNE WHITTAKER DF E78.5 Hyperlipidemia, unspecified 02/19/2016 JAYNE WHITTAKER F17.210 Nicotine dependence, cigarettes, uncompl 02/19/2016 JAYNE WHITTAKER DF J44.9 Chronic obstructive pulmonary disease, u 02/19/2016 JAYNE WHITTAKER DF J45.909 Unspecified asthma, uncomplicated 02/19/2016 JAYNE WHITTAKER DF M06.9 Rheumatoid arthritis, unspecified 02/19/2016 JAYNE WHITTAKER DF M17.12 Unilateral primary osteoarthritis, left 03/01/2017 Tereza CORTES, A E21.3 HYPERPARATHYROIDISM, Rami A UNSPECIFIED 03/02/2017 Tereza CORTES, A E21.3 HYPERPARATHYROIDISM, Rami A UNSPECIFIED 03/02/2017 Tereza CORTES, A E21.3 HYPERPARATHYROIDISM, Rami A UNSPECIFIED 03/02/2017 Tereza CORTES, A E21.3 HYPERPARATHYROIDISM, Rami A UNSPECIFIED 06/18/2017 TEJ CORTES, A E21.3 HYPERPARATHYROIDISM, ASHISH C UNSPECIFIED 06/24/2017 TEJ CORTES, A E21.3 HYPERPARATHYROIDISM, ASHISH Dow UNSPECIFIED 06/24/2017 TEJ CORTES, Bob E21.3 HYPERPARATHYROIDISM, ASHISH Dow UNSPECIFIED Procedures Code Description Performed By Performed On JAYNE WHITTAKER 02/17/2016 [id number] Replacement of Left Knee Joint with Synt Results Encounters ACCT No. Visit Discharge Status Pt. Type Provider Facility Loc./Unit Complaint Date/Time [id number] 12/28/2013 12/28/2013 CLS Outpatient 14:03:00 23:59:59 [id number] 12/12/2013 12/12/2013 CLS Outpatient 12:43:00 23:59:59 [id number] 12/12/2013 12/12/2013 CLS Outpatient 11:06:00 23:59:59 [id number] 11/24/2013 11/24/2013 CLS Outpatient 08:52:00 23:59:59 [id number] 11/22/2013 11/22/2013 CLS Outpatient 11:01:00 23:59:59 [id number] 02/17/2016 02/19/2016 DIS 01 Gus WHITTAKERsas INPT NO 09:18:00 11:32:00 JAYNE [facility] [id number] 06/16/2017 06/16/2017 DIS Outpatient [id number] 17:34:32 17:34:34 [id number] 06/16/2017 06/16/2017 DIS Outpatient [id number] 17:32:31 17:32:31 [id number] 06/16/2017 06/16/2017 DIS Outpatient [id number] 17:32:17 17:32:17 [id number] 05/18/2017 05/18/2017 DIS Outpatient [id number] 08:22:01 08:22:01 [id number] 05/18/2017 05/18/2017 DIS Outpatient [id number] 08:21:46 08:21:46 [id number] 05/18/2017 05/18/2017 DIS Outpatient [id number] 08:21:43 08:21:44 [id number] 01/04/2017 01/04/2017 DIS Outpatient [id number] 09:49:55 09:49:55 [id number] 01/04/2017 01/04/2017 DIS Outpatient [id number] 09:49:39 09:49:39 [id number] 01/04/2017 01/04/2017 DIS Outpatient [id number] 09:49:38 09:49:38 [id number] 01/01/2017 01/01/2017 DIS Outpatient [id number] 09:59:28 09:59:29 [id number] 12/29/2016 12/29/2016 CLS Outpatient [id number] 07:16:32 23:59:59 [id number] 12/29/2016 12/29/2016 CLS Outpatient [id number] 07:15:16 23:59:59 [id number] 12/29/2016 12/29/2016 DIS Outpatient [id number] 07:15:15 07:15:15 [id number] 06/24/2017 06/24/2017 DIS Outpatient TEJ Del ValleRAD [id number] 08:29:00 08:29:00 , [facility] [id number] 03/02/2017 03/02/2017 DIS Outpatient Tereza Del ValleNM [id number] 07:48:00 07:48:00 , [facility]
--- OUTSIDE RECORDS SUMMARY | 2017-08-28 16:08 | External Medical Summary ---
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
[2017-08-28] MEDS ORDERED: IOHEXOL 300mg/ml 75ml INJECTION ONE (17:31)
[2017-08-28] MEDS ORDERED: SALINE FLUSH 10ml SYRINGE ONE (17:31)
[2017-08-28] MEDS ORDERED: NS 100 ML ONE (17:31)
--- NOTE | 2017-08-28 18:25 | Emergency Department Report ---
General Adult HPI - General Chief complaint: Upper Respiratory Infection Stated complaint: diff breathing Time Seen by Provider: 08/28/17 15:28 - History of Present Illness HPI narrative: 52-year-old female presents with hypoxemia, fatigue and weakness suddenly worsening. Today her went to get her out of bed and she collapsed to the floor. She has been in bed for the last 3 days. Taking Zithromax and prednisone for bronchitis. She is not O2 dependent during the day typically, she does use a C Pap of oxygen at night. [id number] history of smoking, chronically smoking one pack per day. She does use nebulized albuterol at home. She has a history of multiple medical fractures from an industrial injury and takes Yampa 3-4 times daily. - Related Data Home Medications Medication Instructions Recorded Confirmed Gabapentin 300 mg PO TID #0 01/07/12 08/28/17 Acetaminophen [Acetaminophen Extra 1,000 mg PO Q6H PRN 08/28/17 08/28/17 Strength] Aspirin/Acetaminophen/Caffeine 2 tab PO QID PRN 08/28/17 08/28/17 [Excedrin Extra Strength Caplet] Azithromycin [Azithromycin] 250 mg PO DAILY 08/28/17 08/28/17 Hydrocodone/APAP 10/325 [[place] 1 tab PO Q6H PRN 08/28/17 08/28/17 10/325] Methocarbamol [Robaxin] 500 mg PO QID PRN 08/28/17 08/28/17 methylPREDNISolone 30 mg PO DAILY 08/28/17 08/28/17 [Methylprednisolone] Allergies Allergy/AdvReac Type Severity Reaction Status Date / Time Penicillins AdvReac Unknown Verified 08/28/17 15:55 TAPE AdvReac Unknown RASH Uncoded 08/28/17 14:59 Review of Systems All systems: reviewed and negative except as stated PFSH Patient Stated Medical History Bronchitis Yes: chronic Chronic Obstructive Pulmonary Yes Disease (COPD) Other Respiratory Yes: emphysema - Social History Smoking status: Current every day smoker Substance use type: does not use Physical Exam - Limitations Limitations: no limitations - General General appearance: lethargic - Normal Exams: Head:: Normocephalic without trauma Cardiovascular:: Regular rate and rhythm, without murmur or gallop, Pulses 2+ all extremities, capillary refill, <2 seconds all extremities Abdomen:: Bowel sounds positive, soft, non-tender, non-distended, no hepatosplenomegaly, masses or bruits noted Neurological:: Patient is alert, and oriented, cranial nerves, motor/sensory/ cerebellar, exams w/o gross deficits, to observation Psychiatric:: Patient exhibits, appropriate attention, emotion and affect - Respiratory Respiratory exam: Present: wheezes (moderate, bilateral) Course Vital Signs Temperature 98.9 F 08/28/17 15:00 Pulse Rate 125 H 08/28/17 15:00 Blood Pressure 103/71 08/28/17 15:00 Pulse Oximetry 89 L 08/28/17 15:00 Temperature 98.9 F 08/28/17 15:00 Pulse Rate 125 H 08/28/17 15:00 Respiratory Rate 20 08/28/17 15:50 Blood Pressure 103/71 08/28/17 15:00 Pulse Oximetry 93 08/28/17 15:50 Medical Decision Making - MDM Narrative Medical decision making narrative: Patient required oxygen, 4 L nasal cannula to maintain O2 sats 89% or better. We did try weaning her from the oxygen and she decreased to 80% on room air. IV fluids were started 1 L normal saline at 500 miles per hour, 125 mg Solu-Medrol IV, Rocephin 1 g IV. Medications were given after blood cultures were obtained. CBC CMP returned essentially normal, with a fully normal white count. Chest x- ray did not appear to have any significant changes on my evaluation of it, d- dimer was obtained and was negative. CT chest was obtained and a anterior medial pneumonia was noted bilateral, "atypical" in appearance. Patient initially was refusing to consider hospitalization, however she did agree to an overnight observation. Hospitalist evaluated and agreed with the admission. - Medical Records Medical records reviewed: Yes: I reviewed the patient's medical records. - Lab Data Lab results reviewed: Yes: I reviewed the patient's lab results. Result diagrams: 08/28/17 15:55 08/28/17 15:55 Lab Results 08/28/17 08/28/17 08/28/17 Range/Units 15:54 15:55 15:55 WBC 5.2 (4.5-11.0) T/MM3 RBC 4.55 (4.00-5.20) M/MM3 Hgb 14.8 (12-16) GM/DL Hct 46.2 H (36-46) % MCV 101.5 H (80-100) UM3 MCH 32.5 (26-34) UUG MCHC 32.0 (31-37) GM/DL RDW Std Deviation 48.9 (36.9-50.2) FL Plt Count 182 (130-400) T/MM3 MPV 10.2 (9.4-12.4) UM3 Immature Gran % (Auto) 0.2 (0.0-0.5) % Neut % (Auto) 63.1 (33-66) % Lymph % (Auto) 26.3 (23-45) % [place] % (Auto) 10.2 H (0-9.0) % Eos % (Auto) 0.0 (0-4) % Baso % (Auto) 0.2 (0-2) % Neut # (Auto) 3.3 (1.8-7.7) T/MM3 Lymph # (Auto) 1.4 (1-4.8) T/MM3 [place] # (Auto) 0.5 (0-0.8) T/MM3 Eos # (Auto) 0.0 (0-0.5) T/MM3 Baso # (Auto) 0.0 (0-0.2) T/MM3 Abs Immat Gran (auto) 0.01 (0.00-0.03) T/MM3 D-Dimer < 150 (0-230) NG/ML VBG pH (7.31-7.41) VBG pCO2 (40-52) MMHG VBG pO2 (40-52) MMHG VBG HCO3 (22-26) MEQ/L VBG Total CO2 MEQ/L VBG O2 Saturation % VBG Base Excess (-2.0-2.0) MMOL/L O2 Delivery Method Turbidity < 20 (0-20) Sodium 142 (134-144) MEQ/L Potassium 3.5 L (3.6-5) MEQ/L Chloride 103 (98-107) MEQ/L Carbon Dioxide 31 H (22-30) MEQ/L Anion Gap 8 (5-15) MEQ/L BUN 6.0 L (7-17) MG/DL Creatinine 0.5 L (0.7-1.2) MG/DL GFR Calculation 131 BUN/Creatinine Ratio 12 (6-26) RATIO Glucose 108 (65-110) MG/DL Calculated Osmolality 272 (261-280) MOSM/KG Calcium 10.3 H (8.4-10.2) MG/DL Total Bilirubin 0.20 (0.20-1.30) MG/DL Icterus Index < 2 (0-7) AST 30 (14-36) U/L ALT 46 (9-52) U/L Alkaline Phosphatase 76 (38-126) U/L Total Protein 6.7 (6.3-8.2) G/DL Albumin 3.7 (3.5-5.0) G/DL Globulin 3.0 (2.4-3.6) G/DL Albumin/Globulin Ratio 1.2 (1.1-2.2) RATIO Plasma Lactate 0.8 (0.6-2.2) MMOL/L Specimen Hemolysis < 15 (0-25) /09/03 Range/Units 15:55 WBC (4.5-11.0) T/MM3 RBC (4.00-5.20) M/MM3 Hgb (12-16) GM/DL Hct (36-46) % MCV (80-100) UM3 MCH (26-34) UUG MCHC (31-37) GM/DL RDW Std Deviation (36.9-50.2) FL Plt Count (130-400) T/MM3 MPV (9.4-12.4) UM3 Immature Gran % (Auto) (0.0-0.5) % Neut % (Auto) (33-66) % Lymph % (Auto) (23-45) % [place] % (Auto) (0-9.0) % Eos % (Auto) (0-4) % Baso % (Auto) (0-2) % Neut # (Auto) (1.8-7.7) T/MM3 Lymph # (Auto) (1-4.8) T/MM3 [place] # (Auto) (0-0.8) T/MM3 Eos # (Auto) (0-0.5) T/MM3 Baso # (Auto) (0-0.2) T/MM3 Abs Immat Gran (auto) (0.00-0.03) T/MM3 D-Dimer (0-230) NG/ML VBG pH 7.410 (7.31-7.41) VBG pCO2 53 H (40-52) MMHG VBG pO2 50 (40-52) MMHG VBG HCO3 34 H (22-26) MEQ/L VBG Total CO2 35.2 MEQ/L VBG O2 Saturation 85.0 % VBG Base Excess 7.5 H (-2.0-2.0) MMOL/L O2 Delivery Method Room air Turbidity (0-20) Sodium (134-144) MEQ/L Potassium (3.6-5) MEQ/L Chloride (98-107) MEQ/L Carbon Dioxide (22-30) MEQ/L Anion Gap (5-15) MEQ/L BUN (7-17) MG/DL Creatinine (0.7-1.2) MG/DL GFR Calculation BUN/Creatinine Ratio (6-26) RATIO Glucose (65-110) MG/DL Calculated Osmolality (261-280) MOSM/KG Calcium (8.4-10.2) MG/DL Total Bilirubin (0.20-1.30) MG/DL Icterus Index (0-7) AST (14-36) U/L ALT (9-52) U/L Alkaline Phosphatase (38-126) U/L Total Protein (6.3-8.2) G/DL Albumin (3.5-5.0) G/DL Globulin (2.4-3.6) G/DL Albumin/Globulin Ratio (1.1-2.2) RATIO Plasma Lactate (0.6-2.2) MMOL/L Specimen Hemolysis (0-25) - Radiology Data Radiology results reviewed: Yes: I reviewed the patient's radiology results. Disposition Clinical Impression: Pneumonia Disposition: 02 To [facility] Condition: Stable Prescriptions: No Action Gabapentin 300 mg PO TID #0 Aspirin/Acetaminophen/Caffeine [Excedrin Extra Strength Caplet] 2 tab PO QID PRN PRN Reason: Pain Acetaminophen [Acetaminophen Extra Strength] 1,000 mg PO Q6H PRN PRN Reason: Pain Methocarbamol [Robaxin] 500 mg PO QID PRN PRN Reason: Prn Orders methylPREDNISolone [Methylprednisolone] 30 mg PO DAILY Azithromycin [Azithromycin] 250 mg PO DAILY Hydrocodone/APAP 10/325 [Yampa 10/325] 1 tab PO Q6H PRN PRN Reason: Pain Referrals: Anjali Berman MD [Family Provider] - Time of Disposition: 18:30 - Seen By: physician
[2017-08-28] MEDS: GUAIFENESIN LA 600 MG TABLET PO SCH ×2 (20:00→22:22)
[2017-08-28] MEDS ORDERED: ALBUTEROL/IPRATROPIUM 2.5mg-0.5mg/3ml NEB AEROSOL PRN (20:07)
[2017-08-28] MEDS ORDERED: PROMETHAZINE/CODEINE ORAL LIQUID 5ml PO PRN (20:07)
[2017-08-28] MEDS ORDERED: APAP/ASA/Caffeine 1 TAB PO PRN (20:07)
[2017-08-28] MEDS ORDERED: ACETAMINOPHEN 500 MG TABLET PO PRN (20:07)
[2017-08-28] MEDS ORDERED: MENTHOL COUGH DROPS (RICOLA) MM PRN (20:07)
[2017-08-28] MEDS ORDERED: METHOCARBAMOL 500 MG TABLET PO PRN (20:07)
[2017-08-28] MEDS ORDERED: ONDANSETRON 4 MG/2 ML INJECTION IVP PRN (20:07)
--- NOTE | 2017-08-28 20:09 | History & Physical Report ---
History of Present Illness Date: 08/28/17 Chief complaint: Difficulty breathing HPI: 52 y/o female with COPD/Emphysema/CB and tobacco dependency present to [facility] ED secondary to increasing difficulty breathing. Started to feel bad about 8 days ago-increasing cough and congestion. Using her nebulizer and started Mucinex, but symptoms not improving. Breathing continued to decline. Started azithromycin and Medrol dose pack on 08/25. No improvements. Patient more and more tired and fatigued. Sleeping more. Too weak to get out of bed. Not eating or drinking well-no appetite. Typically smokes 1 ppd, but has only been able to smoke 4 cigarettes this weak. Today when tried to get out of bed not able to get up-became very weak and slumped down. While not one to go see doctors, did agree she needed attention. Evaluated in ED. CT showing atypical infiltrate (no PE). Initial RA saturation 89%, however did decrease to 79 to 81% despite treatments provided in ED. With patients pneumonia and hypoxia failing outpatient treatment, patient place in inpatient admission for further evaluation and treatment. Anticipate greater than 2 midnights of care needed. Review of Systems - Constitutional Constitutional: Present: anorexia, daytime sleepiness, fatigue, lethargy, weakness - EENMT Ears: Absent: ear pain Balance: Absent: vertigo Nose: Present: other (congestion ) Mouth/Throat: Absent: changes in swallowing - Cardiovascular Cardiovascular: Absent: chest pain, palpitations, edema Vascular: Absent: pedal edema - Respiratory Respiratory: Present: as per HPI, wheezing, chest congestion. Absent: pain on inspiration - Gastrointestinal Gastrointestinal: Absent: diarrhea, nausea, vomiting - Musculoskeletal Musculoskeletal: Present: back pain (Chronic ) - Integumentary/Breasts Integumentary: Absent: pruritus, rash - Neurological Neurological: Absent: focal weakness, numbness - Psychiatric Psychiatric: Absent: behavioral changes - Allergic/Immunologic Allergic/Immunologic: Absent: tongue swelling, throat swelling [facility] Medical History Pneumonia (Acute Medical) COPD/Emphysema/Chronic bronchitis SHEEBA - addressed with CPAP Tobacco dependency Chronic foot drop Chronic back pain Family History: Heart disease and thyroid problems. - Social History Smoking status: Current every day smoker Packs per day: 1 Packs-years: 36 Housing: house Household members: spouse Social history: Dr Berman PCP Medications Home Medications Medication Instructions Recorded Confirmed Type Gabapentin 300 mg PO TID #0 01/07/12 08/28/17 History Acetaminophen [Acetaminophen Extra 1,000 mg PO Q6H PRN 08/28/17 08/28/17 History Strength] Aspirin/Acetaminophen/Caffeine 2 tab PO QID PRN 08/28/17 08/28/17 History [Excedrin Extra Strength Caplet] Azithromycin [Azithromycin] 250 mg PO DAILY 08/28/17 08/28/17 History Hydrocodone/APAP 10/325 [[place] 1 tab PO Q6H PRN 08/28/17 08/28/17 History 10/325] Methocarbamol [Robaxin] 500 mg PO QID PRN 08/28/17 08/28/17 History methylPREDNISolone 30 mg PO DAILY 08/28/17 08/28/17 History [Methylprednisolone] Allergies Allergy/AdvReac Type Severity Reaction Status Date / Time Penicillins AdvReac Unknown Verified 08/28/17 15:55 TAPE AdvReac Unknown RASH Uncoded 08/28/17 14:59 Exam Vital Signs: Temperature 98.9 F 08/28/17 15:00 Pulse Rate 86 08/28/17 19:06 Respiratory Rate 25 H 08/28/17 19:06 Blood Pressure 107/79 08/28/17 19:06 Pulse Oximetry 93 08/28/17 19:06 - Constitutional Present: moderate distress, well nourished, well developed, obese, disheveled, somnolent. Absent: combative, agitated - Routine HEENT Exam Head: Present: normocephalic, atraumatic Eye: Present: EOMI, PERRL. Absent: conjunctival icterus ENT: Present: mucous membranes dry - Routine Neck Exam Present: supple, full ROM, trachea midline - Routine Respiratory Exam Present: decreased breath sounds, prolonged expiratory phase, wheezes, distant breath sounds, diminished air movement - Routine Cardiovascular Exam Present: RRR, no murmur - Routine Abdominal Exam Present: soft, normoactive bowel sounds, non distended, non tender, guarding - Routine Extremities Exam Present: no edema, pulses intact. Absent: cyanosis, clubbing - Routine Skin Exam Present: intact, dry, warm - Routine Neurological Exam Present: alert, CN II-XII intact, moving all extremities, vision grossly intact , hearing grossly intact. Absent: motor deficit, altered mental status - Routine Psychiatric Exam Present: normal affect, normal thought process, cooperative. Absent: anxious Results - Labs CBC & Chem 7: 08/28/17 15:55 08/28/17 15:55 Assessment and Plan (1) Acute respiratory failure with hypoxia Current visit: Yes Status: Acute (2) Pneumonia Current visit: Yes Status: Acute Assessment and Plan: Assessment Acute hypoxic respiratory failure Atypical pneumonia COPD with acute exacerbation Failure of outpatient treatment Hypokalemia (POA) SHEEBA on CPAP Tobacco dependency Chronic back pain Acute generalized debility secondary to respiratory illness Obesity with BMI 31.1 Plan Inpatient admission to [facility] for treatment of acute respiratory insufficiency secondary to atypical pneumonia and COPD exacerbation. Anticipate greater than 2 midnights of care needed. Continue with Rocephin 1 gram IV daily for antimicrobial coverage (initiated in ED). Solu-Medrol 125mg IV q 6 hours to decrease pulmonary inflammation and wheezes. Neb Treatments of DuoNeb QID/q4 PRN and budesonide 0.5mg BID. Acapella and mucinex to help loosen secretions. Phenergan with codeine and Ricola prn cough. Lorazepam 0.5mg IV q 4 hours PRN anxiety/air hunger. Nasal saline QID to decrease nasal congestion. Supplemental O2 to maintain saturations. Check Respiratory swab and obtain sputum for GS wit culture. IVF of 1/2NS with 20KCl at 75 cc/hr to help maintain hydration. RT for tobacco cessation. Continue home CPAP with O2. SCD for DVT prevention. Full code as per her requests. Care to return to Dr Berman at time of discharge from [facility]. DVT Prophylaxis: SCD's Resuscitation Status: Full Code - Time spent with patient Time with patient PN: 70 minutes Hospital Course Summary Disclaimer: The visit summary below is not to be considered part of the above Progress Note. Hospital Course: 08/28/17 Admission Assessment Acute hypoxic respiratory failure Atypical pneumonia COPD with acute exacerbation Failure of outpatient treatment Hypokalemia (POA) SHEEBA on CPAP Tobacco dependency Chronic back pain Acute generalized debility secondary to respiratory illness Obesity with BMI 31.1 Plan Inpatient admission to [facility] for treatment of acute respiratory insufficiency secondary to atypical pneumonia and COPD exacerbation. Anticipate greater than 2 midnights of care needed. Continue with Rocephin 1 gram IV daily for antimicrobial coverage (initiated in ED). Solu-Medrol 125mg IV q 6 hours to decrease pulmonary inflammation and wheezes. Neb Treatments of DuoNeb QID/q4 PRN and budesonide 0.5mg BID. Acapella and mucinex to help loosen secretions. Phenergan with codeine and Ricola prn cough. Lorazepam 0.5mg IV q 4 hours PRN anxiety/air hunger. Nasal saline QID to decrease nasal congestion. Supplemental O2 to maintain saturations. Check Respiratory swab and obtain sputum for GS wit culture. IVF of 1/2NS with 20KCl at 75 cc/hr to help maintain hydration. RT for tobacco cessation. Continue home CPAP with O2. SCD for DVT prevention. Full code as per her requests. Care to return to Dr Berman at time of discharge from [facility].
[2017-08-28] MEDS: ALBUTEROL/IPRATROPIUM 2.5mg-0.5mg/3ml NEB AEROSOL SCH (20:37)
[2017-08-28] MEDS: BUDESONIDE INH.SOLN 0.5mg/2ml NEB AEROSOL SCH (20:37)
[2017-08-28] MEDS: HYDROCODONE/APAP 10 MG/325 MG TABLET PO PRN (21:03)
[2017-08-28 21:09] VITALS: BMI 31.2
[2017-08-28] MEDS: GABAPENTIN 300 MG CAPSULE PO SCH (22:22)
[2017-08-28] MEDS: METHYLPREDNISOLONE SOD SUCC 125mg/2ml INJECTION IVP SCH (22:24)
[2017-08-28] MEDS: SALINE 0.65% NASAL SPRAY 44 ML BOTTLE EA NOSTRIL SCH (22:25)
[2017-08-28] MEDS: 1/2 NS with KCL 20mEq 1,000 ML IV SCH (22:35)
[2017-08-28] MEDS ORDERED: INFLUENZA VAC QIV 2017-18 (Fluarix*)(>=3yo) 0.5ml IM ONE (23:51)
[2017-08-29] MEDS: METHYLPREDNISOLONE SOD SUCC 125mg/2ml INJECTION IVP SCH ×4 (02:21→20:39)
[2017-08-29] MEDS: METAXALONE 800 MG TABLET PO PRN ×2 (02:46→22:08)
[2017-08-29] MEDS: HYDROCODONE/APAP 10 MG/325 MG TABLET PO PRN ×4 (03:26→22:08)
[2017-08-29] MEDS: LORATADINE 10 MG TABLET PO SCH (06:05)
[2017-08-29] MEDS: ALBUTEROL/IPRATROPIUM 2.5mg-0.5mg/3ml NEB AEROSOL SCH ×4 (08:08→18:02)
[2017-08-29] MEDS: BUDESONIDE INH.SOLN 0.5mg/2ml NEB AEROSOL SCH ×2 (08:08→18:02)
--- NOTE | 2017-08-29 08:17 | CT Scan Report ---
Indication: dyspnea, weakness PROCEDURE: CT chest w con: Encounter: Initial Comparison: None Technique: Axial CT images were performed through the chest after the administration of intravenous contrast. Coronal and sagittal two-dimensional reformats. Automated Exposure Control and Iterative Reconstruction dose reducing techniques were utilized. Contrast: Omnipaque 300 74 mL Findings: Minimal subpleural groundglass opacity in the right middle and right lower lobe. Small areas of groundglass in the lingula. No lobar consolidation. No pleural effusion or pneumothorax. The central airways are patent. No axillary or mediastinal lymphadenopathy. Heart size is normal. No pericardial effusion. The upper abdomen shows no acute findings. Adenomatous hyperplasia of the left adrenal gland Impression: Scattered areas of groundglass opacity could represent atypical pneumonia. .
--- NOTE | 2017-08-29 08:22 | XRay Report ---
INDICATION: aute dyspnea PROCEDURE: CHEST 2-VIEWS UPRIGHT (PA & LAT) Encounter: Initial COMPARISON: Chest CT from the same date FINDINGS: The lungs are radiographically clear. The small areas of groundglass opacity seen by chest CT are not apparent on this exam. There is no pleural effusion or pneumothorax. The heart size, mediastinal contours and pulmonary vascularity are within normal limits. There is no significant skeletal abnormality. IMPRESSION: No radiographic acute cardiopulmonary disease. .
[2017-08-29] MEDS: SALINE 0.65% NASAL SPRAY 44 ML BOTTLE EA NOSTRIL SCH ×4 (10:06→22:08)
[2017-08-29] MEDS: CEFTRIAXONE 1 G in NS 100 ML IV SCH (10:08)
[2017-08-29] MEDS: GUAIFENESIN LA 600 MG TABLET PO SCH (10:09)
[2017-08-29] MEDS: GABAPENTIN 300 MG CAPSULE PO SCH ×3 (10:09→20:40)
--- NOTE | 2017-08-29 10:36 | Progress Note ---
- Date 08/29/17 Subjective: F/U: Acute Hypoxic respiratory failure, Viral pneumonia - influenza type A, COPD with acute exacerbation. Feeling much better today-not as completely exhausted and wiped out. Able to be ambulatory. Not able to use CPAP last night due to congestion. Breathing feels better-less cough and congestion. Appetite decreased, but able to keep foods and liquids in. Urinating more-less dark/concentrated urine. No stools (report movements every 3 to 4 days). Wanting to go home. Objective Vital signs: Temperature 96.9 F 08/28/17 23:17 Pulse Rate 91 08/29/17 09:00 Respiratory Rate 16 08/29/17 09:00 Blood Pressure 127/77 08/29/17 09:00 Pulse Oximetry 96 08/29/17 09:00 Height/Weight/BMI: Height 1.7 m Weight 89.1 kg Body Mass Index 31.2 - Constitutional Present: well nourished, well developed, obese, cooperative. Absent: agitated, somnolent - Routine HEENT Exam Head: Present: normocephalic, atraumatic Eye: Present: EOMI, PERRL ENT: Present: mucous membranes moist - Routine Respiratory Exam Present: decreased breath sounds, wheezes, distant breath sounds, diminished air movement. Absent: respiratory distress - Routine Cardiovascular Exam Present: RRR, no murmur - Routine Abdominal Exam Present: soft, normoactive bowel sounds, non distended, non tender, guarding - Routine Extremities Exam Present: no edema, pulses intact. Absent: cyanosis, clubbing - Routine Musculoskeletal Exam Musculoskeletal: Present: no clubbing or cyanosis, normal strength - Routine Skin Exam Present: dry, warm - Routine Neurological Exam Present: alert, oriented X3, CN II-XII intact, moving all extremities, vision grossly intact, hearing grossly intact, normal speech. Absent: altered mental status - Routine Psychiatric Exam Present: normal affect, normal thought process, cooperative. Absent: anxious, agitated Results - Labs CBC & Chem 7: 08/29/17 03:50 08/29/17 03:50 Microbiology Results: Microbiology 08/29/17 08:20 Sputum, Induced Gram Stain - Final 08/29/17 08:20 Sputum, Induced Sputum Culture - Preliminary Culture Initiated - Results Pending 08/28/17 20:57 Sputum, Expectorated Gram Stain - Final 08/28/17 20:57 Sputum, Expectorated Sputum Culture - Final Assessment and Plan (1) Acute respiratory failure with hypoxia Current visit: Yes Status: Acute (2) Pneumonia Current visit: Yes Status: Acute Assessment and Plan: Assessment Acute hypoxic respiratory failure Atypical pneumonia - Influenza Type A COPD with acute exacerbation Failure of outpatient treatment Leukopenia (Not POA) Hypokalemia (POA) - improved SHEEBA on CPAP Tobacco dependency Chronic back pain Acute generalized debility secondary to respiratory illness Obesity with BMI 31.1 Plan Continue with Rocephin for bacterial coverage. Feel patient is out of window for treatment with Tamiflu. Decrease Solu-Medrol to 62.5mg IV q 6 hours. Continue Neb treatments and Acapella. Decrease IVF to 50cc/hr. Encourage oral intake. Wean O2 as able. Respiratory precautions initiated secondary to influenza. Monitor lab - Leukopenia likely secondary to viral infection. Worrisome finding. Case discussed with patient's . Time spent with patient care 35 minutes. DVT Prophylaxis: SCD's Resuscitation Status: Full Code - Time spent with patient Time with patient PN: 35 minutes Hospital Course Summary Disclaimer: The visit summary below is not to be considered part of the above Progress Note. Hospital Course: 08/28/17 Admission Assessment Acute hypoxic respiratory failure Atypical pneumonia COPD with acute exacerbation Failure of outpatient treatment Hypokalemia (POA) SHEEBA on CPAP Tobacco dependency Chronic back pain Acute generalized debility secondary to respiratory illness Obesity with BMI 31.1 Plan Inpatient admission to [facility] for treatment of acute respiratory insufficiency secondary to atypical pneumonia and COPD exacerbation. Anticipate greater than 2 midnights of care needed. Continue with Rocephin 1 gram IV daily for antimicrobial coverage (initiated in ED). Solu-Medrol 125mg IV q 6 hours to decrease pulmonary inflammation and wheezes. Neb Treatments of DuoNeb QID/q4 PRN and budesonide 0.5mg BID. Acapella and mucinex to help loosen secretions. Phenergan with codeine and Ricola prn cough. Lorazepam 0.5mg IV q 4 hours PRN anxiety/air hunger. Nasal saline QID to decrease nasal congestion. Supplemental O2 to maintain saturations. Check Respiratory swab and obtain sputum for GS wit culture. IVF of 1/2NS with 20KCl at 75 cc/hr to help maintain hydration. RT for tobacco cessation. Continue home CPAP with O2. SCD for DVT prevention. Full code as per her requests. Care to return to Dr Berman at time of discharge from [facility]. 08/29/17 Respiratory panel positive for Influenza Type A. White count decreased to 1.8 ( ANC 1224). Continue with Rocephin for bacterial coverage. Feel patient is out of window for treatment with Tamiflu. Decrease Solu-Medrol to 62.5mg IV q 6 hours. Continue Neb treatments and Acapella. Decrease IVF to 50cc/hr. Encourage oral intake. Wean O2 as able. Respiratory precautions initiated secondary to influenza. Monitor lab - Leukopenia likely secondary to viral infection. Worrisome finding.
[2017-08-29] MEDS: 1/2 NS with KCL 20mEq 1,000 ML IV SCH ×3 (11:33→15:18)
[2017-08-29] MEDS ORDERED: INFLUENZA VAC. INJ. ADMIN CHARGE INJ ONE (14:00)
[2017-08-29] MEDS: NICOTINE 21 MG PATCH TD SCH (15:14)
[2017-08-30] MEDS: METHYLPREDNISOLONE SOD SUCC 125mg/2ml INJECTION IVP SCH ×3 (02:00→14:27)
[2017-08-30] MEDS: HYDROCODONE/APAP 10 MG/325 MG TABLET PO PRN ×3 (03:57→16:36)
[2017-08-30] MEDS ORDERED: NS 1,000 ML IV SCH (05:30)
[2017-08-30] MEDS: LORATADINE 10 MG TABLET PO SCH (05:31)
[2017-08-30] MEDS: GABAPENTIN 300 MG CAPSULE PO SCH ×2 (08:04→14:27)
[2017-08-30] MEDS: CEFTRIAXONE 1 G in NS 100 ML IV SCH (08:05)
[2017-08-30] MEDS: NICOTINE 21 MG PATCH TD SCH (08:07)
[2017-08-30] MEDS: SALINE 0.65% NASAL SPRAY 44 ML BOTTLE EA NOSTRIL SCH ×2 (08:08→14:28)
[2017-08-30] MEDS: GUAIFENESIN LA 600 MG TABLET PO SCH (08:11)
[2017-08-30 08:27] VITALS: TEMP 96.8
[2017-08-30] MEDS ORDERED: NICOTINE PATCH REMOVAL TD SCH (09:00)
[2017-08-30] MEDS: ALBUTEROL/IPRATROPIUM 2.5mg-0.5mg/3ml NEB AEROSOL SCH ×3 (09:17→17:06)
[2017-08-30] MEDS: BUDESONIDE INH.SOLN 0.5mg/2ml NEB AEROSOL SCH (09:17)
--- NOTE | 2017-08-30 09:42 | Progress Note ---
- Date 08/30/17 Subjective: F/U: Acute Hypoxic respiratory failure, Viral pneumonia - influenza type A, COPD with acute exacerbation. Doing better. Breathing easier-O2 needs decreasing. Less cough; not moving sputum. Still with chest congestion, but decreasing. No pain with breathing or chest wall discomfort. Appetite fair; no nausea or ab pain. Passing flatus, no stool; not feeling constipated or having ab bloating. No mouth pain. Ambulating more-does tire easily (but much improved from prior to admission). No f/c. Objective Vital signs: Temperature 96.8 F 08/30/17 08:26 Pulse Rate 86 08/30/17 08:26 Respiratory Rate 20 08/30/17 09:18 Blood Pressure 156/82 H 08/30/17 08:26 Pulse Oximetry 97 08/30/17 09:18 Height/Weight/BMI: Height 1.7 m Weight 90.1 kg Body Mass Index 31.2 - Constitutional Present: well nourished, well developed, obese, cooperative. Absent: combative , agitated, somnolent, obtunded - Routine HEENT Exam Head: Present: normocephalic, atraumatic Eye: Present: EOMI, PERRL. Absent: conjunctival icterus ENT: Present: mucous membranes moist (No thrush) - Routine Respiratory Exam Present: decreased breath sounds, prolonged expiratory phase, wheezes (End expiratory wheeze with force expiration; no cough with force expiration ), distant breath sounds, diminished air movement. Absent: respiratory distress - Routine Cardiovascular Exam Present: RRR, no murmur - Routine Abdominal Exam Present: soft, normoactive bowel sounds, non distended, non tender. Absent: guarding - Routine Extremities Exam Present: no edema, pulses intact. Absent: cyanosis, clubbing - Routine Musculoskeletal Exam Musculoskeletal: Present: no clubbing or cyanosis, normal strength - Routine Skin Exam Present: dry, warm - Routine Neurological Exam Present: alert, oriented X3, CN II-XII intact, moving all extremities, vision grossly intact, hearing grossly intact, normal speech. Absent: motor deficit, altered mental status - Routine Psychiatric Exam Present: normal affect, normal thought process, cooperative, good insight, good judgment. Absent: anxious Results - Labs CBC & Chem 7: 08/30/17 03:52 08/30/17 03:52 Microbiology Results: Microbiology 08/29/17 08:20 Sputum, Induced Gram Stain - Final 08/29/17 08:20 Sputum, Induced Sputum Culture - Preliminary Culture Initiated - Results Pending 08/28/17 20:57 Sputum, Expectorated Gram Stain - Final 08/28/17 20:57 Sputum, Expectorated Sputum Culture - Final Assessment and Plan (1) Acute respiratory failure with hypoxia Current visit: Yes Status: Acute (2) Pneumonia Current visit: Yes Status: Acute Assessment and Plan: Assessment Acute hypoxic respiratory failure Atypical pneumonia - Influenza Type A COPD with acute exacerbation Failure of outpatient treatment Leukopenia (Not POA) - resolved Hypokalemia (POA) - improved SHEEBA on CPAP Tobacco dependency Chronic back pain Acute generalized debility secondary to respiratory illness Obesity with BMI 31.1 Plan White count normalized at 7.9. Potassium increased to 5.1-potassium removed from IVF. Will d/c IVF as oral drive improving. Encourage ambulation to help strength. Monitor O2 saturations off of O2. Continue Acapella to loosen secretions - recommend QID for 1 week post discharge and then PRN congestion. Encourage tobacco cessation. Anticipate discharge home later this afternoon if continues to do well. DVT Prophylaxis: SCD's Resuscitation Status: Full Code Hospital Course Summary Disclaimer: The visit summary below is not to be considered part of the above Progress Note. Hospital Course: 08/28/17 Admission Assessment Acute hypoxic respiratory failure Atypical pneumonia COPD with acute exacerbation Failure of outpatient treatment Hypokalemia (POA) SHEEBA on CPAP Tobacco dependency Chronic back pain Acute generalized debility secondary to respiratory illness Obesity with BMI 31.1 Plan Inpatient admission to [facility] for treatment of acute respiratory insufficiency secondary to atypical pneumonia and COPD exacerbation. Anticipate greater than 2 midnights of care needed. Continue with Rocephin 1 gram IV daily for antimicrobial coverage (initiated in ED). Solu-Medrol 125mg IV q 6 hours to decrease pulmonary inflammation and wheezes. Neb Treatments of DuoNeb QID/q4 PRN and budesonide 0.5mg BID. Acapella and Mucinex to help loosen secretions. Phenergan with codeine and Ricola prn cough. Lorazepam 0.5mg IV q 4 hours PRN anxiety/air hunger. Nasal saline QID to decrease nasal congestion. Supplemental O2 to maintain saturations. Check Respiratory swab and obtain sputum for GS wit culture. IVF of 1/2NS with 20KCl at 75 cc/hr to help maintain hydration. RT for tobacco cessation. Continue home CPAP with O2. SCD for DVT prevention. Full code as per her requests. Care to return to Dr Berman at time of discharge from [facility]. 08/29/17 Respiratory panel positive for Influenza Type A. White count decreased to 1.8 ( ANC 1224). Continue with Rocephin for bacterial coverage. Feel patient is out of window for treatment with Tamiflu. Decrease Solu-Medrol to 62.5mg IV q 6 hours. Continue Neb treatments and Acapella. Decrease IVF to 50cc/hr. Encourage oral intake. Wean O2 as able. Respiratory precautions initiated secondary to influenza. Monitor lab - Leukopenia likely secondary to viral infection. Worrisome finding. 08/30/17 Clinically improving. Breathing better. Strength increasing. O2 needs decreasing. White count normalized at 7.9. Potassium increased to 5.1-potassium removed from IVF. Will d/c IVF as oral drive improving. Encourage ambulation to help strength. Monitor O2 saturations off of O2. Continue Acapella to loosen secretions - recommend QID for 1 week post discharge and then PRN congestion. Encourage tobacco cessation. Anticipate discharge home later this afternoon if continues to do well.
[2017-08-30 16:31] VITALS: BP 158/97; PULSE 93; RESP 16
--- NOTE | 2017-08-30 17:00 | Discharge Summary ---
Discharge Information Date of admission: 08/28/17 20:07 Anticipated date of discharge: 08/30/17 Attending Physician: Nicholas Coffey MD Primary care physician: Anjali Berman MD Consults: RT for tobacco cessation - Discharge Diagnosis (1) Acute respiratory failure with hypoxia Status: Acute (2) Pneumonia Status: Acute Discharge diagnosis Acute hypoxic respiratory failure Associated conditions and complications Atypical pneumonia - Influenza Type A COPD with acute exacerbation Failure of outpatient treatment Leukopenia (Not POA) - resolved Hypokalemia (POA) - improved SHEEBA on CPAP Tobacco dependency Chronic back pain Acute generalized debility secondary to respiratory illness Obesity with BMI 31.1 - Laboratory Labs: Admit Lab 08/28/17 15:55 WBC 5.2 Hgb 14.8 Hct 46.2 H MCV 101.5 H MCH 32.5 Plt Count 182 Neut % (Auto) 63.1 Lymph % (Auto) 26.3 [place] % (Auto) 10.2 H Admit Lab 08/28/17 15:55 Sodium 142 Potassium 3.5 L Chloride 103 Carbon Dioxide 31 H Anion Gap 8 BUN 6.0 L Creatinine 0.5 L GFR Calculation 131 BUN/Creatinine Ratio 12 Glucose 108 Calculated Osmolality 272 Calcium 10.3 H Total Bilirubin 0.20 AST 30 ALT 46 Alkaline Phosphatase 76 Total Protein 6.7 Albumin 3.7 Globulin 3.0 Albumin/Globulin Ratio 1.2 Plasma Lactate 0.8 Respiratory serology 08/28/17 20:56 Influenza Type A (PCR) Detected inf a h3 A B12 level - low normal 08/29/17 03:50 Vitamin B12 286 08/30/17 03:52 08/30/17 03:52 - Microbiology Microbiology 08/29/17 08:20 Sputum, Induced Gram Stain - Final 08/29/17 08:20 Sputum, Induced Sputum Culture - Preliminary No Growth After 1 Day 08/28/17 20:57 Sputum, Expectorated Gram Stain - Final 08/28/17 20:57 Sputum, Expectorated Sputum Culture - Final - Radiology Radiology: Date of Exam: 08/28/17 PROCEDURE: CHEST 2-VIEWS UPRIGHT (PA & LAT) FINDINGS: The lungs are radiographically clear. The small areas of groundglass opacity seen by chest CT are not apparent on this exam. There is no pleural effusion or pneumothorax. The heart size, mediastinal contours and pulmonary vascularity are within normal limits. There is no significant skeletal abnormality. IMPRESSION: No radiographic acute cardiopulmonary disease. Date of Exam: 08/28/17 PROCEDURE: CT chest w con Findings: Minimal subpleural groundglass opacity in the right middle and right lower lobe. Small areas of ground-glass in the lingula. No lobar consolidation. No pleural effusion or pneumothorax. The central airways are patent. No axillary or mediastinal lymphadenopathy. Heart size is normal. No pericardial effusion. The upper abdomen shows no acute findings. Adenomatous hyperplasia of the left adrenal gland Impression: Scattered areas of ground-glass opacity could represent atypical pneumonia. History of Present Illness HPI: 52 y/o female with COPD/Emphysema/CB and tobacco dependency present to [facility] ED secondary to increasing difficulty breathing. Started to feel bad about 8 days ago-increasing cough and congestion. Using her nebulizer and started Mucinex, but symptoms not improving. Breathing continued to decline. Started azithromycin and Medrol dose pack on 08/25. No improvements. Patient more and more tired and fatigued. Sleeping more. Too weak to get out of bed. Not eating or drinking well-no appetite. Typically smokes 1 ppd, but has only been able to smoke 4 cigarettes this weak. Today when tried to get out of bed not able to get up-became very weak and slumped down. While not one to go see doctors, did agree she needed attention. Evaluated in ED. CT showing atypical infiltrate (no PE). Initial RA saturation 89%, however did decrease to 79 to 81% despite treatments provided in ED. With patients pneumonia and hypoxia failing outpatient treatment, patient place in inpatient admission for further evaluation and treatment. Anticipate greater than 2 midnights of care needed. For complete details of the H&P refer to that document. Objective Vital signs: Temperature 96.8 F 08/30/17 16:00 Pulse Rate 93 08/30/17 16:00 Respiratory Rate 16 08/30/17 16:00 Blood Pressure 158/97 H 08/30/17 16:00 Pulse Oximetry 94 08/30/17 16:00 Height/Weight/BMI: Height 1.7 m Weight 90.1 kg Body Mass Index 31.2 Hospital Course This is a general summary of the patient's hospital course. For more details refer to the complete medical record. Hospital course: 08/28/17 Admission Assessment Acute hypoxic respiratory failure Atypical pneumonia COPD with acute exacerbation Failure of outpatient treatment Hypokalemia (POA) SHEEBA on CPAP Tobacco dependency Chronic back pain Acute generalized debility secondary to respiratory illness Obesity with BMI 31.1 Plan Inpatient admission to [facility] for treatment of acute respiratory insufficiency secondary to atypical pneumonia and COPD exacerbation. Anticipate greater than 2 midnights of care needed. Continue with Rocephin 1 gram IV daily for antimicrobial coverage (initiated in ED). Solu-Medrol 125mg IV q 6 hours to decrease pulmonary inflammation and wheezes. Neb Treatments of DuoNeb QID/q4 PRN and budesonide 0.5mg BID. Acapella and Mucinex to help loosen secretions. Phenergan with codeine and Ricola prn cough. Lorazepam 0.5mg IV q 4 hours PRN anxiety/air hunger. Nasal saline QID to decrease nasal congestion. Supplemental O2 to maintain saturations. Check Respiratory swab and obtain sputum for GS wit culture. IVF of 1/2NS with 20KCl at 75 cc/hr to help maintain hydration. RT for tobacco cessation. Continue home CPAP with O2. SCD for DVT prevention. Full code as per her requests. Care to return to Dr Berman at time of discharge from [facility]. 08/29/17 Respiratory panel positive for Influenza Type A. White count decreased to 1.8 ( ANC 1224). Continue with Rocephin for bacterial coverage. Feel patient is out of window for treatment with Tamiflu. Decrease Solu-Medrol to 62.5mg IV q 6 hours. Continue Neb treatments and Acapella. Decrease IVF to 50cc/hr. Encourage oral intake. Wean O2 as able. Respiratory precautions initiated secondary to influenza. Monitor lab - Leukopenia likely secondary to viral infection. Worrisome finding. 08/30/17 Clinically improving. Breathing better. Strength increasing. O2 needs decreasing. White count normalized at 7.9. Potassium increased to 5.1-potassium removed from IVF. Will d/c IVF as oral drive improving. Encourage ambulation to help strength. Monitor O2 saturations off of O2. Continue Acapella to loosen secretions - recommend QID for 1 week post discharge and then PRN congestion. Encourage tobacco cessation. Anticipate discharge home later this afternoon if continues to do well. Has been ambulating well in halls today. Maintaining saturations well on RA. Respiratory status improved. Will d/c to home. Tobacco cessation again encouraged by myself and her . Prednisone 40mg daily for 5 days. Acapella QID for 1 week. F/U with PCP in 1 week. See orders for details Time spent with patient: discharge greater than 30 minutes DVT Prophylaxis: SCD's Discharge Plan - Discharge Disposition Disposition: Discharged Home, Self-Care *Condition: Stable Reason For Visit (Visit label in EMR): COPD exacerbation, hypoxia, influenza - Discharge Medications *Discharge Medications: New Albuterol/Ipratropium [Duoneb] 3 ml AEROSOL RTQID neb Albuterol/Ipratropium [Duoneb] 3 ml AEROSOL Q4HR PRN neb PRN Reason: Shortness Of Air Guaifenesin LA [Mucinex LA] 1,200 mg PO BID tablet Sodium Chloride [[place]] 2 spray EA NOSTRIL QID spray Promethazine + Cod Liq [Phenergan + Codeine] 5 ml PO Q4H PRN #200 ml PRN Reason: Cough PredniSONE [Deltasone] 20 mg PO WB #10 tab Continue Gabapentin 300 mg PO TID #0 Aspirin/Acetaminophen/Caffeine [Excedrin Extra Strength Caplet] 2 tab PO QID PRN PRN Reason: Pain Acetaminophen [Acetaminophen Extra Strength] 1,000 mg PO Q6H PRN PRN Reason: Pain Methocarbamol [Robaxin] 500 mg PO QID PRN PRN Reason: Prn Orders Hydrocodone/APAP 10/325 [[place] 10/325] 1 tab PO Q6H PRN PRN Reason: Pain Discontinued methylPREDNISolone [Methylprednisolone] 30 mg PO DAILY Azithromycin [Azithromycin] 250 mg PO DAILY - Discharge Packet/Instructions *Diet: Regular *Activity: As tolerated *Pain Management/Treatment: Continue previous pain medications *Wound Care: n/a Additional Instructions: Use acapella 4 times a day for 1 week, then as needed for congestion *Expected Signs/Symptoms: Improvement of breathing and functional status *Notify Physician if: Temp >100.4. Intactable diarrhea. Worsening respiratory status. *During Business Hours Contact: Dr Berman *After Business Hours Contact: Dr Berman *Pending Lab/Results: No Pending Lab - Referrals/Follow Up *Referrals/Follow Up: Anjali Berman MD [Family Provider] - 1 Week (Hospital follow up. ) - Patient Handouts Patient Handouts: COPD (Chronic Obstructive Pulmonary Disease) (GEN), Hypoxia ( GEN) - Dismissal Complete Discharge Instructions are:: Complete Attestation Narriative - Attestation Attestation Narrative: 08/30/17 17:06 I have independently interviewed and examined patient prior to discharge. See my progress note from today for details. Medically stable for discharge to home.
[2017-08-30 17:10] VITALS: O2SAT 95
== END 2017-08-30 17:17 | disposition home or self-care (01) | DRG 193 ==
LOC: ED 14:48 → MED 14:48
PROVIDERS: ADMIT Hospitalist; ATTEND Hospitalist